=== PATIENT | female | born 1955 | race Caucasian/White ===

== ENCOUNTER → 2018-01-09 | Outpatient (CLI) | payer BC ==
[~2018-01-09] MED LIST: ACT35T PO; CALC-8 PO; CEFD300C3 PO; CHOL200078 PO; EST1.25T PO; FOLI1TAB24 PO; GABA-490 PO; HYDR-3816 PO; HYDR1CAP2 PO; MELO7.5T PO; MTX2.5T PO; ONDA-42 PO; PRED10TA22 PO; RISE150T; TOFA11TA PO
--- NOTE | 2018-01-09 18:50 | Diagnostic Imaging Report ---
INDICATION: Osteoporosis screening. FINDINGS: Bone mineral analysis of the lumbar spine and bilateral hips was performed. Bone mineral density for the lumbar spine L2-L4 is 1.055 with a T-score of -1.2. The bone mineral density in the left femoral neck is 0.866 with T-score of -1.2. Bone mineral density in the right femoral neck is 0.894 with T-score of -1.0. IMPRESSION: Findings consistent with osteopenia of the lumbar spine and bilateral femoral necks. Dictated by: Dictated on workstation # [id number]
== END ==
LOC: RAD 11:28
PROVIDERS: ATTEND Internal Medicine Rheumatology
DX: Z13.820 Encounter for screening for osteoporosis (principal); M85.80 Other specified disorders of bone density and structure, unspecified site
CPT/HCPCS: 77080

== ENCOUNTER → 2018-04-11 | Outpatient (CLI) | payer BC ==
[~2018-04-11] MED LIST changes: +RT-ALBUTEROL SULF 2.5 MG/3 ML PRE-MIX VIAL INH ONE
--- NOTE | 2018-04-11 13:53 | Diagnostic Imaging Report ---
PROCEDURE: CT chest without contrast. TECHNIQUE: Multiple contiguous axial images were obtained through the chest without the use of intravenous contrast. INDICATION: Dyspnea. Recent hospitalization for pneumonia. COMPARISON: 02/05/2018 FINDINGS: No suggestion of pathologically enlarged mediastinal and/or hilar lymph nodes on noncontrast imaging. The heart size is unremarkable. Thoracic aorta normal in contour. Gastroesophageal junction unremarkable. Lungs relatively clear of infiltrate on followup. There is a small, predominant solid nodule posterior right lower lobe currently measuring 6 mm (image 34 series 2). Previously measured at 78 mm, generally stable. The visualized portions of the upper abdomen are unremarkable. The visualized osseous structures demonstrate no acute findings. IMPRESSION: 1. Lung jaime appearing generally clear of infiltrate on followup. 2. Small right lower lobe pulmonary nodule does persist as well as generally stable in size from previous imaging, continued followup imaging is recommended as possibly neoplasm should not be excluded at this time. Dictated by: Dictated on workstation # [id number]
== END ==
LOC: RAD 10:13
PROVIDERS: ATTEND Nurse Practitioner Family
DX: J18.9 Pneumonia, unspecified organism (principal); R91.1 Solitary pulmonary nodule; M19.90 Unspecified osteoarthritis, unspecified site
CPT/HCPCS: 71250; 94060; 94726; 94729

== ENCOUNTER 2018-06-15 19:40 | Emergency (ER) | payer BC ==
[~2018-06-15] VITALS: Ht 170.2 cm; Wt 63.5 kg
[~2018-06-15 19:40] MED LIST changes: -RT-ALBUTEROL SULF 2.5 MG/3 ML PRE-MIX VIAL INH ONE
--- OUTSIDE RECORDS SUMMARY | 2018-06-15 19:46 | XMS REPORT | Clinical Summary ---
Author Author [facility] Organization [facility] Address Unknown Phone Unavailable Care Team Providers Care Surgical Nurse Practitioner Name Role Phone Anthony Warner MD PCP Allergies Active Allergy Reactions Severity Noted Date Comments Risedronate Nausea And Vomiting 05/05/2018 Etanercept Rash Medium 09/30/2017 Adalimumab Swelling 05/05/2018 Current Medications Prescription Sig. Disp. Refills Start End Date Status Date traZODone (DESYREL) 50 MG Take 50 mg by mouth Active tablet nightly. ranitidine (ZANTAC) 75 MG Take 75 mg by mouth 2 Active tablet (two) times a day. folic acid (FOLVITE) 1 MG Take 1 tablet (1 mg 90 tablet 3 06/10/20 Active tablet total) by mouth daily. 17 PREMARIN 1.25 mg tablet Take 1.25 mg by mouth 5 11/19/19 Active daily. 18 XELJANZ XR 11 mg Tb24 3 12/26/19 Active 18 HYDROcodone-acetaminophen 0 12/17/19 Active (NORCO) 7.5-325 mg per 18 tablet tiZANidine (ZANAFLEX) 2 Take 1 tablet (2 mg 30 tablet 1 12/31/19 Active MG tablet total) by mouth every 8 18 (eight) hours as needed. methylPREDNISolone Follow package directions 21 tablet 0 12/31/19 Active (MEDROL DOSEPACK) 4 mg 18 tablet methotrexate 2.5 MG TAKE 6 TABLETS BY MOUTH 78 tablet 0 01/14/20 Active tablet WEEKLY 18 VENTOLIN HFA 90 11 03/04/20 Active mcg/actuation HFA inhaler 18 predniSONE (DELTASONE) 5 Take 1 tablet (5 mg 10 tablet 1 05/05/20 Active MG tablet total) by mouth daily. 18 gabapentin (NEURONTIN) TAKE ONE CAPSULE BY MOUTH 270 capsule 0 Active 400 MG capsule THREE TIMES DAILY 18 Hospital, Clinic, or Ordered Dose Route Frequency Start End Date Status Other Facility Date Administered Medication methylPREDNISolone 80 mg IM Once 03/18/20 Active acetate (DEPO-MEDROL) 80 17 mg/mL injection 80 mgIndications: Shoulder pain, unspecified chronicity, unspecified laterality, Chronic pain of toes of both feet, Raised antibody titer Active Problems Problem Noted Date Encounter for therapeutic drug monitoring 12/30/2017 Osteopenia 12/30/2017 Seropositive rheumatoid arthritis of multiple sites (HCC) 06/10/2017 Pain in both hands 06/10/2017 Pain of left hip joint 06/10/2017 Shoulder pain 03/18/2017 Chronic pain of toes of both feet 03/18/2017 Raised antibody titer 03/18/2017 Stiffness of joint 03/18/2017 Overview: IMO Update Encounters Date Type Specialty Care Team Description 05/13/2018 Documentation Rheumatology Bhavana Torre MD 05/10/2018 Refill Rheumatology Bhavana Torre MD Other 05/06/2018 Documentation Rheumatology Bhavana Torre MD 05/05/2018 Office Visit Rheumatology Bhavana Torre MD Seropositive rheumatoid arthritis of multiple sites (HCC) (Primary Dx); Osteopenia, unspecified location; Pain in both hands; Encounter for therapeutic drug monitoring from Last 3 Months Social History Tobacco Use Types Packs/Day Years Used Date Never Smoker Smokeless Tobacco: Never Used Sex Assigned at Date Recorded Not on file Last Filed Vital Signs Vital Sign Reading Time Taken Blood Pressure 124/78 05/05/2018 11:30 AM [employer] Pulse 66 05/05/2018 11:30 AM [employer] Temperature 36.3 C (97.3 F) 05/05/2018 11:30 AM [employer] Respiratory Rate 16 12/30/2017 11:26 AM CDT Oxygen Saturation 98% 12/30/2017 11:26 AM CDT Inhaled Oxygen - - Concentration Weight 70.3 kg (155 lb) 05/05/2018 11:30 AM [employer] Height 170.2 cm (5' 7") 05/05/2018 11:30 AM [employer] Body Mass Index 24.28 05/05/2018 11:30 AM [employer] Plan of Treatment Date Type Specialty Care Team Description 09/01/2018 Office Visit Rheumatology Bhavana Torre MD [address] [place] [id number] [phone] Health Maintenance Due Date Last Done Comments Hepatitis C Screen 1955 Td # 1955 Osteoporosis Screening 1955 Cervical Cancer Screening 09/25/1976 via Pap Smear Colorectal Screening via 09/25/2005 Colonoscopy Mammogram Screening 09/25/2005 Zoster Vaccine# (1 of 2) 09/25/2005 Influenza Vaccine Completed 04/10/2018 Results Not on filefrom Last 3 Months
--- OUTSIDE RECORDS SUMMARY | 2018-06-15 19:46 | XMS REPORT | Encounter Summary ---
Author Author [facility] Organization [facility] Address Unknown Phone Unavailable Care Team Providers Care Director Diversity Name Role Phone Anthony Warner MD PCP Encounter Details Date Type Department Care Team Description 05/13/2018 Documentation [facility] Rheumatology Bhavana Torre MD [facility] [address] [place] [address] [facility] [address] [place] [address] [phone] Social History Tobacco Use Types Packs/Day Years Used Date Never Smoker Smokeless Tobacco: Never Used Sex Assigned at Date Recorded Not on file as of this encounter Plan of Treatment Date Type Specialty Care Team Description 09/01/2018 Office Visit Rheumatology Bhavana Torre MD [address] [place] [address] [phone] as of this encounter Visit Diagnoses Not on filein this encounter
--- OUTSIDE RECORDS SUMMARY | 2018-06-15 19:47 | XMS REPORT | Continuity of Care Document ---
Author Author [facility] Organization [facility] Address Unknown Phone Unavailable Allergies Active Description Code Type Severity Reaction Onset Reported/Identified Relationship to Patient Clinical Status Yes No Known Drug Allergies [id number] Drug Allergy Unknown N/A 08/09/2010 Yes adalimumab [id number] Drug Allergy Moderate SWOLLEN/REDNESS 02/05/2018 Yes etanercept [id number] Drug Allergy Moderate REDNESS/SWELLIN 02/05/2018 Medications There is no data. Problems Date Dx Coded Attending Type Code Diagnosis Diagnosed By 01/07/2011 Ot 558.9 NONINF GASTROENTERIT NEC 01/07/2011 Ot 787.91 DIARRHEA 12/27/2011 Ot 276.50 VOLUME DEPLETION, UNSPECIFIED 12/27/2011 Ot 288.60 LEUKOCYTOSIS , UNSPECIFIED 12/27/2011 Ot 558.9 NONINF GASTROENTERIT NEC 12/27/2011 Ot 724.2 LUMBAGO 12/27/2011 Ot 784.0 HEADACHE 12/31/2012 TOLU TEJEDA MD Ot 562.10 DIVERTICULOSIS COLON (W/O MENT OF HEMORR 12/31/2012 TOLU TEJEDA MD Ot 578.1 BLOOD IN STOOL 03/01/2016 Ot 722.52 LUMB/ LUMBOSAC DISC DEGEN 03/01/2016 Ot 558.9 NONINF GASTROENTERIT NEC 03/01/2016 TOLU TEJEDA MD Ot V72.84 EXAM PRE-OPERATIVE NOS 03/06/2016 SAPPHIRE PANDYA DO Ot S99.922A UNSPECIFIED INJURY OF LEFT FOOT, INITIAL 03/06/2016 SAPPHIRE PANDYA DO Ot W20.8XXA OTH CAUSE OF STRIKE BY THROWN, PROJECTED 03/06/2016 SAPPHIRE PANDYA DO Ot Y99.8 OTHER EXTERNAL CAUSE STATUS 03/14/2016 SAPPHIRE PANDYA DO Ot S99.922A UNSPECIFIED INJURY OF LEFT FOOT, INITIAL 03/14/2016 SAPPHIRE PANDYA DO Ot W20.8XXA OT CAUSE OF STRIKE BY THROWN, PROJECTED 03/14/2016 SAPPHIRE PANDYA DO Ot Y99.8 OTHER EXTERNAL CAUSE STATUS 12/25/2017 MICHELLE WATTS Ot Z12.31 ENCNTR SCREEN MAMMOGRAM FOR MALIGNANT NE 01/09/2018 MICHELLE WATTS Ot Z12.31 ENCNTR SCREEN MAMMOGRAM FOR MALIGNANT NE 01/15/2018 ADRIANA DAVIS, MACKENZIE Ot M85.80 OT DISRD OF BONE DENSITY AND STRUCTURE, 01/15/2018 ADRIANA DAVIS, MACKENZIE Ot Z13.820 ENCOUNTER FOR SCREENING FOR OSTEOPOROSIS 01/22/2018 MACKENZIE WRIGHT MD Ot M85.80 OT DISRD OF BONE DENSITY AND STRUCTURE, 01/22/2018 MACKENZIE WRIGHT MD Ot Z13.820 ENCOUNTER FOR SCREENING FOR OSTEOPOROSIS 02/12/2018 Ot I95.9 HYPOTENSION, UNSPECIFIED 02/12/2018 Ot J81.1 CHRONIC PULMONARY EDEMA 02/12/2018 Ot J84.9 INTERSTITIAL PULMONARY DISEASE, UNSPECIF 02/12/2018 Ot M06.9 RHEUMATOID ARTHRITIS, UNSPECIFIED 02/12/2018 Ot M25.559 PAIN IN UNSPECIFIED HIP 02/12/2018 Ot M54.9 DORSALGIA, UNSPECIFIED 02/12/2018 Ot N28.9 DISORDER OF KIDNEY AND URETER, UNSPECIFI 02/12/2018 Ot R07.89 OTHER CHEST PAIN 02/12/2018 Ot R11.2 NAUSEA WITH VOMITING, UNSPECIFIED 02/12/2018 Ot R19.7 DIARRHEA, UNSPECIFIED 02/12/2018 Ot R51 HEADACHE 02/12/2018 Ot R91.1 SOLITARY PULMONARY NODULE 02/19/2018 SAPPHIRE PANDYA DO Ot J18.9 PNEUMONIA, UNSPECIFIED ORGANISM 03/07/2018 SAPPHIRE PANDYA DO Ot J18.9 PNEUMONIA, UNSPECIFIED ORGANISM 04/14/2018 BEVERLY العلي APRN Ot J18.9 PNEUMONIA, UNSPECIFIED ORGANISM 04/14/2018 BEVERLY العلي APRN Ot M19.90 UNSPECIFIED OSTEOARTHRITIS, UNSPECIFIED 04/14/2018 BEVERLY العلي APRN Ot R91.1 SOLITARY PULMONARY NODULE Procedures Code Description Performed By Performed On [id number] DRAINAGE OF SPINAL CANAL, PERCUTANEOUS A 02/07/2018 [id number] DRAINAGE OF RIGHT MIDDLE LUNG LOBE, ENDO 02/09/2018 [id number] DRAINAGE OF LEFT UPPER LUNG LOBE, ENDO, 02/09/2018 Results Test Result Range Complete blood count (CBC) with automated white blood cell (WBC) differential - 02/05/18 10:10 Blood leukocytes automated count (number/volume) 8.5 10*3/uL 4.3-11.0 Blood erythrocytes automated count (number/volume) 4.57 10*6/uL 4.35-5.85 Venous blood hemoglobin measurement (mass/volume) 14.0 g/dL 11.5-16.0 Blood hematocrit (volume fraction) 41 % 35-52 Automated erythrocyte mean corpuscular volume 89 [foz_us] 80-99 Automated erythrocyte mean corpuscular hemoglobin (mass per erythrocyte) 31 pg 25-34 Automated erythrocyte mean corpuscular hemoglobin concentration measurement ( mass/volume) 34 g/dL 32-36 Automated erythrocyte distribution width ratio 13.9 % 10.0-14.5 Automated blood platelet count (count/volume) 278 10*3/uL 130-400 Automated blood platelet mean volume measurement 8.2 [foz_us] 7.4-10.4 Automated blood neutrophils/100 leukocytes 81 % 42-75 Automated blood lymphocytes/100 leukocytes 6 % 12-44 Blood monocytes/100 leukocytes 8 % 0-12 Automated blood eosinophils/100 leukocytes 5 % 0-10 Automated blood basophils/100 leukocytes 0 % 0-10 Blood neutrophils automated count (number/volume) 6.9 10*3 1.8-7.8 Blood lymphocytes automated count (number/volume) 0.5 10*3 1.0-4.0 Blood monocytes automated count (number/volume) 0.7 10*3 0.0-1.0 Automated eosinophil count 0.4 10*3/uL 0.0-0.3 Automated blood basophil count (count/volume) 0.0 10*3/uL 0.0-0.1 Blood lactic acid measurement (moles/volume) - 02/05/18 10:10 Blood lactic acid measurement (moles/volume) 1.24 mmol/L 0.50-2.00 Comprehensive metabolic panel - 02/05/18 10:10 Serum or plasma sodium measurement (moles/volume) 138 mmol/L 135-145 Serum or plasma potassium measurement (moles/volume) 4.0 mmol/L 3.6-5.0 Serum or plasma chloride measurement (moles/volume) 101 mmol/L 98-107 Carbon dioxide 27 mmol/L 21-32 Serum or plasma anion gap determination (moles/volume) 10 mmol/L 5-14 Serum or plasma urea nitrogen measurement (mass/volume) 16 mg/dL 7-18 Serum or plasma creatinine measurement (mass/volume) 1.08 mg/dL 0.60-1.30 Serum or plasma urea nitrogen/creatinine mass ratio 15 NRG Serum or plasma creatinine measurement with calculation of estimated glomerular filtration rate 51 NRG Serum or plasma glucose measurement (mass/volume) 108 mg/dL 70-105 Serum or plasma calcium measurement (mass/volume) 10.0 mg/dL 8.5-10.1 Serum or plasma total bilirubin measurement (mass/volume) 0.8 mg/dL 0.1-1.0 Serum or plasma alkaline phosphatase measurement (enzymatic activity/volume) 69 U/L 40-136 Serum or plasma aspartate aminotransferase measurement (enzymatic activity/ volume) 22 U/L 5-34 Serum or plasma alanine aminotransferase measurement (enzymatic activity/volume ) 17 U/L 0-55 Serum or plasma protein measurement (mass/volume) 7.3 g/dL 6.4-8.2 Serum or plasma albumin measurement (mass/volume) 4.2 g/dL 3.2-4.5 CALCIUM CORRECTED 9.8 mg/dL 8.5-10.1 Blood manual differential performed detection - 02/05/18 10:10 Blood monocytes/100 leukocytes 5 % NR Manual blood segmented neutrophils/100 leukocytes 67 % NRG Blood band neutrophils/100 leukocytes 13 % NRG Manual blood lymphocytes/100 leukocytes 11 % NRG Manual eosinophils/100 leukocytes in nose 3 % NRG Manual blood basophils/100 leukocytes 0 % NRG Blood lymphocytes variant/100 leukocytes 1 % NRG Blood erythrocyte morphology finding identification NORMAL NRG Blood platelet clump detection by light microscopy SLIGHT NRG PT panel in platelet poor plasma by coagulation assay - 02/05/18 10:10 Prothrombin time (PT) in platelet poor plasma by coagulation assay 13.5 s 12.2-14.7 INR in platelet poor plasma or blood by coagulation assay 1.0 0.8-1.4 Activated partial thromboplastin time (aPTT) in platelet poor plasma bycoagulation assay - 02/05/18 10:10 Activated partial thromboplastin time (aPTT) in platelet poor plasma bycoagulation assay 32 s 24-35 Fibrin D-dimer FEU measurement in platelet poor plasma (mass/volume) - 10:10 Fibrin D-dimer FEU measurement in platelet poor plasma (mass/volume) 1.79 ug/mL 0.00-0.49 Serum or plasma lithium measurement (moles/volume) - 02/05/18 10:10 BNP level < pg/mL <100.0 Bacterial blood culture - 02/05/18 10:10 Bacterial blood culture NG NRG Bacterial blood culture - 02/05/18 10:33 Bacterial blood culture NG NRG Complete blood count (CBC) with automated white blood cell (WBC) differential - 02/06/18 05:24 Blood leukocytes automated count (number/volume) 4.9 10*3/uL 4.3-11.0 Blood erythrocytes automated count (number/volume) 3.61 10*6/uL 4.35-5.85 Venous blood hemoglobin measurement (mass/volume) 10.6 g/dL 11.5-16.0 Blood hematocrit (volume fraction) 33 % 35-52 Automated erythrocyte mean corpuscular volume 90 [foz_us] 80-99 Automated erythrocyte mean corpuscular hemoglobin (mass per erythrocyte) 29 pg 25-34 Automated erythrocyte mean corpuscular hemoglobin concentration measurement ( mass/volume) 33 g/dL 32-36 Automated erythrocyte distribution width ratio 14.1 % 10.0-14.5 Automated blood platelet count (count/volume) 267 10*3/uL 130-400 Automated blood platelet mean volume measurement 8.4 [foz_us] 7.4-10.4 Automated blood neutrophils/100 leukocytes 64 % 42-75 Automated blood lymphocytes/100 leukocytes 17 % 12-44 Blood monocytes/100 leukocytes 13 % 0-12 Automated blood eosinophils/100 leukocytes 7 % 0-10 Automated blood basophils/100 leukocytes 0 % 0-10 Blood neutrophils automated count (number/volume) 3.1 10*3 1.8-7.8 Blood lymphocytes automated count (number/volume) 0.8 10*3 1.0-4.0 Blood monocytes automated count (number/volume) 0.6 10*3 0.0-1.0 Automated eosinophil count 0.3 10*3/uL 0.0-0.3 Automated blood basophil count (count/volume) 0.0 10*3/uL 0.0-0.1 Comprehensive metabolic panel - 02/06/18 05:24 Serum or plasma sodium measurement (moles/volume) 138 mmol/L 135-145 Serum or plasma potassium measurement (moles/volume) 3.8 mmol/L 3.6-5.0 Serum or plasma chloride measurement (moles/volume) 109 mmol/L 98-107 Carbon dioxide 21 mmol/L 21-32 Serum or plasma anion gap determination (moles/volume) 8 mmol/L 5-14 Serum or plasma urea nitrogen measurement (mass/volume) 9 mg/dL 7-18 Serum or plasma creatinine measurement (mass/volume) 0.84 mg/dL 0.60-1.30 Serum or plasma urea nitrogen/creatinine mass ratio 11 NRG Serum or plasma creatinine measurement with calculation of estimated glomerular filtration rate > NRG Serum or plasma glucose measurement (mass/volume) 104 mg/dL 70-105 Serum or plasma calcium measurement (mass/volume) 8.4 mg/dL 8.5-10.1 Serum or plasma total bilirubin measurement (mass/volume) 0.5 mg/dL 0.1-1.0 Serum or plasma alkaline phosphatase measurement (enzymatic activity/volume) 53 U/L 40-136 Serum or plasma aspartate aminotransferase measurement (enzymatic activity/ volume) 22 U/L 5-34 Serum or plasma alanine aminotransferase measurement (enzymatic activity/volume ) 16 U/L 0-55 Serum or plasma protein measurement (mass/volume) 5.0 g/dL 6.4-8.2 Serum or plasma albumin measurement (mass/volume) 3.1 g/dL 3.2-4.5 CALCIUM CORRECTED 9.1 mg/dL 8.5-10.1 THYROID STIMULATING HORMONE - 02/06/18 05:24 THYROID STIMULATING HORMONE 1.07 u[iU]/mL 0.35-4.94 Serum or plasma troponin i.cardiac measurement (mass/volume) - 02/06/18 12:25 Serum or plasma troponin i.cardiac measurement (mass/volume) < ng/ mL <0.30 Complete urinalysis with reflex to culture - 02/06/18 13:40 Urine color determination YELLOW NRG Urine clarity determination CLEAR NRG Urine pH measurement by test strip 5 5-9 Specific gravity of urine by test strip 1.015 1.016- 1.022 Urine protein assay by test strip, semi-quantitative NEGATIVE NEGATIVE Urine glucose detection by automated test strip NEGATIVE NEGATIVE Erythrocytes detection in urine sediment by light microscopy NEGATIVE NEGATIVE Urine ketones detection by automated test strip NEGATIVE NEGATIVE Urine nitrite detection by test strip NEGATIVE NEGATIVE Urine total bilirubin detection by test strip NEGATIVE NEGATIVE Urine urobilinogen measurement by automated test strip (mass/volume) NORMAL NORMAL Urine leukocyte esterase detection by dipstick NEGATIVE NEGATIVE Automated urine sediment erythrocyte count by microscopy (number/high power field) RARE NRG Automated urine sediment leukocyte count by microscopy (number/high power field ) NONE NRG Bacteria detection in urine sediment by light microscopy NEGATIVE NRG Squamous epithelial cells detection in urine sediment by light microscopy 0-2 NRG Crystals detection in urine sediment by light microscopy PRESENT NRG Casts detection in urine sediment by light microscopy NONE NRG Mucus detection in urine sediment by light microscopy NEGATIVE NRG Complete urinalysis with reflex to culture NO NRG Amorphous sediment detection in urine sediment by light microscopy FEW DILLON URATES NRG Complete blood count (CBC) with automated white blood cell (WBC) differential - 02/06/18 15:25 Blood leukocytes automated count (number/volume) 5.9 10*3/uL 4.3-11.0 Blood erythrocytes automated count (number/volume) 3.81 10*6/uL 4.35-5.85 Venous blood hemoglobin measurement (mass/volume) 11.4 g/dL 11.5-16.0 Blood hematocrit (volume fraction) 34 % 35-52 Automated erythrocyte mean corpuscular volume 90 [foz_us] 80-99 Automated erythrocyte mean corpuscular hemoglobin (mass per erythrocyte) 30 pg 25-34 Automated erythrocyte mean corpuscular hemoglobin concentration measurement ( mass/volume) 33 g/dL 32-36 Automated erythrocyte distribution width ratio 13.9 % 10.0-14.5 Automated blood platelet count (count/volume) 268 10*3/uL 130-400 Automated blood platelet mean volume measurement 8.0 [foz_us] 7.4-10.4 Automated blood neutrophils/100 leukocytes 80 % 42-75 Automated blood lymphocytes/100 leukocytes 8 % 12-44 Blood monocytes/100 leukocytes 8 % 0-12 Automated blood eosinophils/100 leukocytes 4 % 0-10 Automated blood basophils/100 leukocytes 0 % 0-10 Blood neutrophils automated count (number/volume) 4.7 10*3 1.8-7.8 Blood lymphocytes automated count (number/volume) 0.5 10*3 1.0-4.0 Blood monocytes automated count (number/volume) 0.5 10*3 0.0-1.0 Automated eosinophil count 0.2 10*3/uL 0.0-0.3 Automated blood basophil count (count/volume) 0.0 10*3/uL 0.0-0.1 Blood lactic acid measurement (moles/volume) - 02/06/18 15:25 Blood lactic acid measurement (moles/volume) 1.79 mmol/L 0.50-2.00 Comprehensive metabolic panel - 02/06/18 15:25 Serum or plasma sodium measurement (moles/volume) 139 mmol/L 135-145 Serum or plasma potassium measurement (moles/volume) 3.9 mmol/L 3.6-5.0 Serum or plasma chloride measurement (moles/volume) 110 mmol/L 98-107 Carbon dioxide 19 mmol/L 21-32 Serum or plasma anion gap determination (moles/volume) 10 mmol/L 5-14 Serum or plasma urea nitrogen measurement (mass/volume) 8 mg/dL 7-18 Serum or plasma creatinine measurement (mass/volume) 0.93 mg/dL 0.60-1.30 Serum or plasma urea nitrogen/creatinine mass ratio 9 NRG Serum or plasma creatinine measurement with calculation of estimated glomerular filtration rate > NRG Serum or plasma glucose measurement (mass/volume) 99 mg/dL 70-105 Serum or plasma calcium measurement (mass/volume) 8.7 mg/dL 8.5-10.1 Serum or plasma total bilirubin measurement (mass/volume) 0.6 mg/dL 0.1-1.0 Serum or plasma alkaline phosphatase measurement (enzymatic activity/volume) 65 U/L 40-136 Serum or plasma aspartate aminotransferase measurement (enzymatic activity/ volume) 27 U/L 5-34 Serum or plasma alanine aminotransferase measurement (enzymatic activity/volume ) 21 U/L 0-55 Serum or plasma protein measurement (mass/volume) 5.7 g/dL 6.4-8.2 Serum or plasma albumin measurement (mass/volume) 3.4 g/dL 3.2-4.5 CALCIUM CORRECTED 9.2 mg/dL 8.5-10.1 Serum or plasma phosphate measurement (mass/volume) - 02/06/18 15:25 Serum or plasma phosphate measurement (mass/volume) 2.2 mg/dL 2.3-4.7 Magnesium - 02/06/18 15:25 Magnesium 1.7 mg/dL 1.8-2.4 Serum or plasma troponin i.cardiac measurement (mass/volume) - 02/06/18 18:00 Serum or plasma troponin i.cardiac measurement (mass/volume) < ng/ mL <0.30 Serum or plasma troponin i.cardiac measurement (mass/volume) - 02/06/18 23:59 Serum or plasma troponin i.cardiac measurement (mass/volume) < ng/ mL <0.30 Complete blood count (CBC) with automated white blood cell (WBC) differential - 02/07/18 03:12 Blood leukocytes automated count (number/volume) 5.1 10*3/uL 4.3-11.0 Blood erythrocytes automated count (number/volume) 3.53 10*6/uL 4.35-5.85 Venous blood hemoglobin measurement (mass/volume) 10.6 g/dL 11.5-16.0 Blood hematocrit (volume fraction) 32 % 35-52 Automated erythrocyte mean corpuscular volume 90 [foz_us] 80-99 Automated erythrocyte mean corpuscular hemoglobin (mass per erythrocyte) 30 pg 25-34 Automated erythrocyte mean corpuscular hemoglobin concentration measurement ( mass/volume) 33 g/dL 32-36 Automated erythrocyte distribution width ratio 13.9 % 10.0-14.5 Automated blood platelet count (count/volume) 241 10*3/uL 130-400 Automated blood platelet mean volume measurement 8.3 [foz_us] 7.4-10.4 Automated blood neutrophils/100 leukocytes 69 % 42-75 Automated blood lymphocytes/100 leukocytes 14 % 12-44 Blood monocytes/100 leukocytes 12 % 0-12 Automated blood eosinophils/100 leukocytes 5 % 0-10 Automated blood basophils/100 leukocytes 0 % 0-10 Blood neutrophils automated count (number/volume) 3.5 10*3 1.8-7.8 Blood lymphocytes automated count (number/volume) 0.7 10*3 1.0-4.0 Blood monocytes automated count (number/volume) 0.6 10*3 0.0-1.0 Automated eosinophil count 0.2 10*3/uL 0.0-0.3 Automated blood basophil count (count/volume) 0.0 10*3/uL 0.0-0.1 Blood lactic acid measurement (moles/volume) - 02/07/18 03:12 Blood lactic acid measurement (moles/volume) 0.93 mmol/L 0.50-2.00 Whole blood basic metabolic panel - 02/07/18 03:12 Serum or plasma sodium measurement (moles/volume) 143 mmol/L 135-145 Serum or plasma potassium measurement (moles/volume) 3.5 mmol/L 3.6-5.0 Serum or plasma chloride measurement (moles/volume) 114 mmol/L 98-107 Carbon dioxide 21 mmol/L 21-32 Serum or plasma anion gap determination (moles/volume) 8 mmol/L 5-14 Serum or plasma urea nitrogen measurement (mass/volume) 5 mg/dL 7-18 Serum or plasma creatinine measurement (mass/volume) 0.87 mg/dL 0.60-1.30 Serum or plasma urea nitrogen/creatinine mass ratio 6 NRG Serum or plasma creatinine measurement with calculation of estimated glomerular filtration rate > NRG Serum or plasma glucose measurement (mass/volume) 100 mg/dL 70-105 Serum or plasma calcium measurement (mass/volume) 8.6 mg/dL 8.5-10.1 Serum or plasma phosphate measurement (mass/volume) - 02/07/18 03:12 Serum or plasma phosphate measurement (mass/volume) 3.2 mg/dL 2.3-4.7 Magnesium - 02/07/18 03:12 Magnesium 1.7 mg/dL 1.8-2.4 Serum or plasma lithium measurement (moles/volume) - 02/07/18 09:36 BNP level 619.3 pg/mL <100.0 Cerebrospinal fluid cell count - 02/07/18 14:06 Cerebrospinal fluid appearance description CLEAR NRG Cerebrospinal fluid color identification COLORLESS NRG Cerebrospinal fluid leukocytes count (number/volume) 0 % 0-5 Cerebrospinal fluid erythrocytes count (number/volume) 0 % 0-0 Manual cerebrospinal fluid lymphocytes/100 leukocytes TNP NRG Manual cerebrospinal fluid mononuclear cells/100 leukocytes TNP NRG Manual cerebrospinal fluid polymorphonuclear cells/100 leukocytes TNP NRG Cerebrospinal fluid cell count on specimen from last tube collected 4 NRG Cerebrospinal fluid glucose measurement (mass/volume) - 02/07/18 14:06 Cerebrospinal fluid glucose measurement (mass/volume) 69 mg/dL 50-80 Cerebrospinal fluid protein measurement (mass/volume) - 02/07/18 14:06 Cerebrospinal fluid protein measurement (mass/volume) 24 mg/dL 15-40 Gram stain microscopy - 02/07/18 14:06 GRAM STAIN RESULT GRAM STAIN READ AT -P NRG Bacterial cerebrospinal fluid culture - 02/07/18 14:06 QUANTITY OF GROWTH . NRG Bacterial cerebrospinal fluid culture RML NRG Fungus culture - 02/07/18 14:06 QUANTITY OF GROWTH . NRG Fungus culture RML NRG C FUNGUS SPUTUM FLUID TISSUE - 02/07/18 14:06 C FUNGUS SPUTUM FLUID TISSUE NG NRG Vancomycin trough - 02/07/18 21:24 Vancomycin trough 17.3 ug/mL 10.0-20.0 Complete blood count (CBC) with automated white blood cell (WBC) differential - 02/08/18 03:23 Blood leukocytes automated count (number/volume) 5.7 10*3/uL 4.3-11.0 Blood erythrocytes automated count (number/volume) 3.94 10*6/uL 4.35-5.85 Venous blood hemoglobin measurement (mass/volume) 11.6 g/dL 11.5-16.0 Blood hematocrit (volume fraction) 35 % 35-52 Automated erythrocyte mean corpuscular volume 90 [foz_us] 80-99 Automated erythrocyte mean corpuscular hemoglobin (mass per erythrocyte) 29 pg 25-34 Automated erythrocyte mean corpuscular hemoglobin concentration measurement ( mass/volume) 33 g/dL 32-36 Automated erythrocyte distribution width ratio 14.0 % 10.0-14.5 Automated blood platelet count (count/volume) 262 10*3/uL 130-400 Automated blood platelet mean volume measurement 7.9 [foz_us] 7.4-10.4 Automated blood neutrophils/100 leukocytes 73 % 42-75 Automated blood lymphocytes/100 leukocytes 11 % 12-44 Blood monocytes/100 leukocytes 9 % 0-12 Automated blood eosinophils/100 leukocytes 7 % 0-10 Automated blood basophils/100 leukocytes 0 % 0-10 Blood neutrophils automated count (number/volume) 4.1 10*3 1.8-7.8 Blood lymphocytes automated count (number/volume) 0.6 10*3 1.0-4.0 Blood monocytes automated count (number/volume) 0.5 10*3 0.0-1.0 Automated eosinophil count 0.4 10*3/uL 0.0-0.3 Automated blood basophil count (count/volume) 0.0 10*3/uL 0.0-0.1 Whole blood basic metabolic panel - 02/08/18 03:23 Serum or plasma sodium measurement (moles/volume) 142 mmol/L 135-145 Serum or plasma potassium measurement (moles/volume) 3.5 mmol/L 3.6-5.0 Serum or plasma chloride measurement (moles/volume) 106 mmol/L 98-107 Carbon dioxide 24 mmol/L 21-32 Serum or plasma anion gap determination (moles/volume) 12 mmol/L 5-14 Serum or plasma urea nitrogen measurement (mass/volume) 6 mg/dL 7-18 Serum or plasma creatinine measurement (mass/volume) 1.16 mg/dL 0.60-1.30 Serum or plasma urea nitrogen/creatinine mass ratio 5 NRG Serum or plasma creatinine measurement with calculation of estimated glomerular filtration rate 47 NRG Serum or plasma glucose measurement (mass/volume) 91 mg/dL 70-105 Serum or plasma calcium measurement (mass/volume) 8.6 mg/dL 8.5-10.1 Serum or plasma phosphate measurement (mass/volume) - 02/08/18 03:23 Serum or plasma phosphate measurement (mass/volume) 4.0 mg/dL 2.3-4.7 Magnesium - 02/08/18 03:23 Magnesium 2.0 mg/dL 1.8-2.4 Erythrocyte sedimentation rate by westergren method - 02/08/18 03:23 Erythrocyte sedimentation rate by westergren method 30 mm 0-30 C FUNGUS SPUTUM FLUID TISSUE - 02/09/18 08:00 C FUNGUS SPUTUM FLUID TISSUE NG NRG Mycobacterium species detection by organism specific culture - 02/09/18 08:00 QUANTITY OF GROWTH . NRG Mycobacterium species detection by organism specific culture SEE COMMEN NRG C FUNGUS SPUTUM FLUID TISSUE - 02/09/18 08:01 C FUNGUS SPUTUM FLUID TISSUE NG NRG C FUNGUS SPUTUM FLUID TISSUE - 02/09/18 08:02 C FUNGUS SPUTUM FLUID TISSUE NG NRG Mycobacterium species detection by organism specific culture - 02/09/18 08:02 QUANTITY OF GROWTH . NRG Mycobacterium species detection by organism specific culture SEE COMMEN NRG Encounters ACCT No. Visit Date/Time Discharge Status Pt. Type Provider Facility Loc./Unit Complaint [id number] 04/14/2018 11:59:00 04/14/2018 23:59:59 CLS Preadmit BEVERLY العلي APRN [facility] RAD LUNG NODULE [id number] 04/11/2018 10:13:00 04/11/2018 23:59:59 CLS Outpatient BEVERLY العلي APRN [facility] RAD DYSPNEA,ARTHRITIS [id number] 02/19/2018 09:19:00 02/19/2018 23:59:59 CLS Preadmit MACKENZIE WRIGHT MD [facility] RAD M85.80 OSTEOPENIA [id number] 02/18/2018 09:42:00 02/18/2018 23:59:59 CLS Outpatient SAPPHIRE PANDYA DO [facility] RAD PNEUMONIA [id number] 01/09/2018 11:28:00 01/09/2018 23:59:59 CLS Outpatient MACKENZIE WRIGHT MD [facility] RAD OSTEOPENIA,UNSPECIFIED LOCATION [id number] 12/24/2017 08:35:00 12/24/2017 23:59:59 CLS Outpatient MICHELLE WATTS [facility] RAD SCREENING [id number] 03/01/2016 12:52:00 03/01/2016 23:59:59 CLS Outpatient SAPPHIRE PANDYA DO [facility] RAD PAIN L METATARSAL REGION [id number] 12/31/2012 09:32:00 12/31/2012 13:25:00 DIS Outpatient TOLU TEJEDA MD [facility] SDC BLOOD IN STOOL [id number] 12/24/2012 09:37:00 12/24/2012 23:59:59 CLS Outpatient TOLU TEJEDA MD [facility] PREOP BLOOD IN STOOL [id number] 02/06/2018 08:21:00 Document Registration [id number] 12/25/2011 05:25:00 Document Registration [id number] 08/16/2011 14:56:00 Document Registration [id number] 01/07/2011 11:18:00 Document Registration [id number] 12/20/2010 11:15:00 Document Registration
--- OUTSIDE RECORDS SUMMARY | 2018-06-15 19:47 | XMS REPORT | Encounter Summary ---
Author Author [facility] Organization [facility] Address Unknown Phone Unavailable Care Team Providers Care Java Application Developer Name Role Phone Anthony Warner MD PCP Reason for Visit * Reason Comments Other Encounter Details Date Type Department Care Team Description 05/10/2018 Refill [facility] Rheumatology Bhavana Torre MD Other Specialists [address] [place] [address] [address] [address] [place] [address] [phone] Social History Tobacco Use Types Packs/Day Years Used Date Never Smoker Smokeless Tobacco: Never Used Sex Assigned at Date Recorded Not on file as of this encounter Plan of Treatment Date Type Specialty Care Team Description 09/01/2018 Office Visit Rheumatology Bhavana Torre MD [address] [place] [address] [phone] as of this encounter Visit Diagnoses Not on filein this encounter
--- OUTSIDE RECORDS SUMMARY | 2018-06-15 19:47 | XMS REPORT | Encounter Summary ---
Author Author [facility] Organization [facility] Address Unknown Phone Unavailable Care Team Providers Care Building Mechanic Name Role Phone Anthony Warner MD PCP Encounter Details Date Type Department Care Team Description 05/06/2018 Documentation [facility] Rheumatology Bhavana Torre MD Specialists [address] [place] [address] [facility] [address] [place] [address] [phone] Social History Tobacco Use Types Packs/Day Years Used Date Never Smoker Smokeless Tobacco: Never Used Sex Assigned at Date Recorded Not on file as of this encounter Plan of Treatment Date Type Specialty Care Team Description 09/01/2018 Office Visit Rheumatology Bhavana Torre MD [address] [place] [address] [phone] as of this encounter Visit Diagnoses Not on filein this encounter
--- OUTSIDE RECORDS SUMMARY | 2018-06-15 19:47 | XMS REPORT | Encounter Summary ---
Author Author [facility] Organization [facility] Address Unknown Phone Unavailable Care Team Providers Care School Librarian Name Role Phone Anthony Warner MD PCP Reason for Visit * Reason Comments Follow-up Encounter Details Date Type Department Care Team Description 05/05/2018 Office Visit [facility] Rheumatology Bhavana Torre MD Seropositive rheumatoid Specialists [address] arthritis of multiple [address] [place] [address] sites ([facility]) (Primary Dx); [address] [place], [place] [address] location; [phone] Pain in both hands; Encounter for therapeutic drug monitoring Social History Tobacco Use Types Packs/Day Years Used Date Never Smoker Smokeless Tobacco: Never Used Sex Assigned at Date Recorded Not on file as of this encounter Last Filed Vital Signs Vital Sign Reading Time Taken Blood Pressure 124/78 05/05/2018 11:30 AM TUBULAR SPLITTING MACHINE TENDER Pulse 66 05/05/2018 11:30 AM TUBULAR SPLITTING MACHINE TENDER Temperature 36.3 C (97.3 F) 05/05/2018 11:30 AM TUBULAR SPLITTING MACHINE TENDER Respiratory Rate - - Oxygen Saturation - - Inhaled Oxygen - - Concentration Weight 70.3 kg (155 lb) 05/05/2018 11:30 AM TUBULAR SPLITTING MACHINE TENDER Height 170.2 cm (5' 7") 05/05/2018 11:30 AM TUBULAR SPLITTING MACHINE TENDER Body Mass Index 24.28 05/05/2018 11:30 AM TUBULAR SPLITTING MACHINE TENDER in this encounter Progress Notes * Bhavana Torre MD - 05/05/2018 11:40 AM TUBULAR SPLITTING MACHINE TENDER Formatting of this note may be different from the original. Patient ID: Selena Flores is a 62 y.o. female. Subjective: Patient presents with Follow-up Objective: ROS recent pneumonia in January 2018. Her pneumonia is better, she was found to have nodules and states that she will need them looked at. Uses inhalers daily. She is now followed by pulmonary as well History of Present Illness Pt states that she got really sick for several days, she got Pneumonia and was told to get off all her medications for three weeks. This was in January 2018, she states that she then still took a long time to get better, she went back on the Xelzanj and is off the Methotrexate at this time. She states that after her recent pneumonia, when she resumed the Xeljanz, she made an appointment to see Dr. Derrek Jaime and has an upcoming evaluation with them in August 2018 Allergies Allergies Allergen Reactions Enbrel [Etanercept] Rash Actonel [Risedronate] Nausea And Vomiting Humira [Adalimumab] Swelling Medications Outpatient Prescriptions Marked as Taking for the 05/05/18 encounter (Office Visit) with Bhavana Torre MD Medication Sig Dispense Refill folic acid (FOLVITE) 1 MG tablet Take 1 tablet (1 mg total) by mouth daily. 90 tablet 3 gabapentin (NEURONTIN) 400 MG capsule TAKE ONE CAPSULE BY MOUTH THREE TIMES DAILY 270 capsule 0 HYDROcodone-acetaminophen (NORCO) 7.5-325 mg per tablet 0 methotrexate 2.5 MG tablet TAKE 6 TABLETS BY MOUTH WEEKLY 78 tablet 0 methylPREDNISolone (MEDROL DOSEPACK) 4 mg tablet Follow package directions 21 tablet 0 PREMARIN 1.25 mg tablet Take 1.25 mg by mouth daily. 5 ranitidine (ZANTAC) 75 MG tablet Take 75 mg by mouth 2 (two) times a day. tiZANidine (ZANAFLEX) 2 MG tablet Take 1 tablet (2 mg total) by mouth every 8 (eight) hours as needed. 30 tablet 1 traZODone (DESYREL) 50 MG tablet Take 50 mg by mouth nightly. VENTOLIN HFA 90 mcg/actuation HFA inhaler 11 XELJANZ XR 11 mg Tb24 3 Current Facility-Administered Medications for the 05/05/18 encounter (Office Visit) with Bhavana Torre MD Medication Dose Route Frequency Provider Last Rate Last Dose methylPREDNISolone acetate (DEPO-MEDROL) 80 mg/mL injection 80 mg 80 mg Intramuscular Once Bhavana Torre MD Physical Exam General appearance - alert, well appearing, and in no distress Eyes - pupils equal and reactive, extraocular eye movements intact Ears - bilateral TM's and external ear canals normal Nose - normal and patent, no erythema, discharge or polyps Mouth - mucous membranes moist and no oral sores. No pharyngeal erythema seen Neck - supple, no significant adenopathy Chest - clear to auscultation, no wheezes, rales or rhonchi, symmetric air entry Heart - normal rate, regular rhythm, normal S1, S2, no murmurs, rubs, clicks or gallops Abdomen - soft, nontender, nondistended, no masses or organomegaly Back exam - full range of motion, no tenderness, palpable spasm or pain on motion Musculoskeletal - no joint tenderness, deformity or swelling, bilateral knee and hip tenderness. Hands swollen and tender. Skin - normal coloration and turgor, no rashes, no suspicious skin lesions noted Vitals BP 124/78 | Pulse 66 | Temp 36.3 C (97.3 F) (Tympanic) | Ht 1.702 m (5' 7 ") | Wt 70.3 kg (155 lb) | BMI 24.28 kg/m Assessment Encounter Diagnoses Name Primary? Seropositive rheumatoid arthritis of multiple sites (HCC) Yes Osteopenia, unspecified location Pain in both hands Encounter for therapeutic drug monitoring Plan Orders Placed This Encounter Quantiferon TB Gold Plus Standing Status: Future Number of Occurrences: 1 Standing Expiration Date: 05/06/2019 CBC and Diff (manual diff if necessary) Standing Status: Future Number of Occurrences: 1 Standing Expiration Date: 05/06/2019 Comprehensive Metabolic Panel Standing Status: Future Number of Occurrences: 1 Standing Expiration Date: 05/06/2019 C-Reactive Protein Standing Status: Future Number of Occurrences: 1 Standing Expiration Date: 05/06/2019 Erythrocyte Sedimentation Rate Standing Status: Future Number of Occurrences: 1 Standing Expiration Date: 05/06/2019 VENTOLIN HFA 90 mcg/actuation HFA inhaler Refill: 11 DISCONTD: predniSONE (DELTASONE) 5 MG tablet Sig: Take 1 tablet (5 mg total) by mouth daily. Dispense: 10 tablet Refill: 1 predniSONE (DELTASONE) 5 MG tablet Sig: Take 1 tablet (5 mg total) by mouth daily. Dispense: 10 tablet Refill: 1 1. Past history of low-grade positive CCP test of 23 in March 2015. She has had extensive problems with polyarthralgias and myalgias. In the past she has had a mildly elevated C-reactive protein as well.All her numbers were normal on recent repeat. 2. Bone density scan performed in 2018 showed osteopenia of the spine and bilateral hips. We discussed adequate calcium and vitamin D intake at this time. 3. Incomplete response to nonsteroidal medications-she has been on meloxicam with no benefit and cannot afford Celebrex. 4. Long-standing history of low back pain her back hurts after doing activities at the end of the day. She is taking gabapentin 400 mg 3 times a day. Script for muscle relaxant provided in the past as well. 5. Disease modifying drug monitoring-she is reporting headaches with the use of methotrexate. Most recently she had pneumonia an stopped taking the methotrexate. I have encouraged her to get the pneumococcal vaccine. 6. Elevated C-reactive protein-we will perform blood work today. She is off methotrexate. We will also obtain a TB test at this time . She was taking methotrexate 10 tab once a week, this dose was decreased when she got started on biologic medications. She continues to state that she is not getting enough benefit with any of these medications. She wonders if Remicade infusions would be an option to treat. She might be needing to look at alternative insurance options the beginning of next year. So for now we have encouraged her to to stay on Xeljanz and can decide on alternative medications at her follow-up appointment. I will give her a short course of prednisone for 10 days with 1 refill to help in the meantime. We have given her periodic steroid injections to help. She has since tried the biologic Humira, developed side effects due to the same and it was then switched and well but has reacted to that as well with injection site reactions. We started biologic Xelzanj in September 2017.Her x-rays of her hands as well as her left hip showed changes consistent with erosive arthritis. follow up appt in 3months. in this encounter Plan of Treatment Date Type Specialty Care Team Description 09/01/2018 Office Visit Rheumatology Bhavana Torre MD [address] [place] [address] [phone] Name Priority Associated Diagnoses Order Schedule Quantiferon TB Gold Plus Routine Seropositive rheumatoid 1 Occurrences starting arthritis of multiple 05/05/2018 until sites ([facility]) 05/06/2019 Pain in both hands CBC and Diff (manual diff if necessary) Routine Seropositive rheumatoid 1 Occurrences starting arthritis of multiple 05/05/2018 until sites ([facility]) 05/06/2019 Pain in both hands Comprehensive Metabolic Panel Routine Seropositive rheumatoid 1 Occurrences starting arthritis of multiple 05/05/2018 until sites ([facility]) 05/06/2019 Pain in both hands C-Reactive Protein Routine Seropositive rheumatoid 1 Occurrences starting arthritis of multiple 05/05/2018 until sites ([facility]) 05/06/2019 Pain in both hands Erythrocyte Sedimentation Rate Routine Seropositive rheumatoid 1 Occurrences starting arthritis of multiple 05/05/2018 until sites ([facility]) 05/06/2019 Pain in both hands as of this encounter Visit Diagnoses Diagnosis Seropositive rheumatoid arthritis of multiple sites ([facility]) - Primary Osteopenia, unspecified location Pain in both hands Encounter for therapeutic drug monitoring
--- NOTE | 2018-06-15 20:26 | ED Cough/URI ---
General Chief Complaint: Cough/Cold/Flu Symptoms Stated Complaint: PNEUMONIA Nursing Triage Note: AMB TO TRIAGE WITH FEVER, COUGH, SORE THROAT ET STARTING X2 DAYS AGO. STATES SHE TOOK TYLENOL 1000MG AT 1500 Source: patient, spouse Exam Limitations: no limitations History of Present Illness Date Seen by Provider: Jun 15, 2018 Time Seen by Provider: 20:01 Initial Comments PT ARRIVES VIA POV FROM HOME STATES SHE BEGAN GETTING SICK 2 DAYS AGO C/O FEVER UP TO 102.7 C/O BODY ACHES C/O SORE THROAT C/O BILATERAL EAR PAIN C/O CLEAR NASAL DRAINAGE C/O PRODUCTIVE COUGH WITH CLEAR TO WHITE SPUTUM NO CHEST PAIN OR SHORTNESS OF BREATH OR WHEEZING C/O BACK PAIN AND GENERALIZED PAIN PT TOOK TYLENOL X 2 AT 1500 TODAY, OTHERWISE HAS NOT TAKEN ANYTHING FOR SYMPTOMS PT HAS R.A. AND TAKES HYDROCODONE, BUT HAS NOT HAD ANY SINCE YESTERDAY. PT IS ON XELJANZ FOR R.A. PT HAD PNEUMONIA IN JANUARY BUT OTHERWISE DOES NOT HAVE A HISTORY OF RESPIRATORY PROBLEMS HAS BEEN OFF METHOTREXATE SINCE JANUARY PCP: DR. PANDYA Allergies and Home Medications Allergies Coded Allergies: adalimumab (Verified Allergy, Intermediate, SWOLLEN/REDNESS, 02/05/18) etanercept (Verified Allergy, Intermediate, REDNESS/SWELLING, 02/05/18) Home Medications Benzonatate 100 Mg Capsule, 1-2 TAB PO TID Prescribed by: KELLIE SONG on 06/15/182128 Calcium Carbonate/Vitamin D3 1 Each Tab.chew, 2 TAB.CHEW PO DAILY, (Reported) Cefdinir 300 Mg Capsule, 300 MG PO BID Prescribed by: LUIS GUZMAN on 02/12/18 1327 Cefdinir 300 Mg Capsule, 300 MG PO BID Prescribed by: KELLIE SONG on 06/15/182128 Cholecalciferol (Vitamin D3) 2,000 Unit Tab.chew, 4,000 UNIT PO DAILY, (Reported ) TAKES 2 (2,000 UNIT) TABLETS Estrogens Conjugated 1.25 Mg Tab, 1.25 MG PO DAILY, (Reported) Folic Acid 1 Mg Tablet, 1 MG PO SuTuWeThFrSa, (Reported) Folic Acid 1 Mg Tablet, 2 MG PO Mo, (Reported) TAKES 2 (1MG) TABLETS ON MONDAYS; DAY AFTER METHOTREXATE Gabapentin 400 Mg Capsule, 400 MG PO TID, (Reported) Guaifenesin/Dextromethorphan 1 Each Tbmp.12hr, 1 EACH PO BID Prescribed by: KELLIE SONG on 06/15/182128 Hydrocodone/Acetaminophen 1 Each Tablet, 1 TAB PO TID PRN for PAIN-MODERATE, ( Reported) Loratadine/Pseudoephedrine 1 Each Tab.er.12h, 1 EACH PO BID Prescribed by: KELLIE SONG on 06/15/182128 Methylprednisolone 4 Mg Tab.ds.pk, 4 MG PO UD Prescribed by: KELLIE SONG on 06/15/182128 Prednisone 10 Mg Tab.ds.pk, 10 MG PO DAILY Take 6 tabs(60mg)daily,decrease by 1 tab(10MG)daily. Prescribed by: LUIS GUZMAN on 02/12/18 132 Triamcinolone Acetonide 10.8 Ml [place], 2 SPRAY NSEACH BID Prescribed by: KELLIE SONG on 06/15/182129 Patient Home Medication List Home Medication List Reviewed: Yes Review of Systems Review of Systems Constitutional: see HPI, chills, fever, weakness EENTM: nose congestion, throat pain Respiratory: see HPI, cough; No short of breath Cardiovascular: no symptoms reported; No chest pain Gastrointestinal: no symptoms reported Genitourinary: no symptoms reported Musculoskeletal: see HPI, back pain, joint pain, muscle pain Skin: no symptoms reported; No rash Psychiatric/Neurological: No Symptoms Reported; Denies Headache Hematologic/Lymphatic: No Symptoms Reported Immunological/Allergic: no symptoms reported Past Bonhkqc-Xctnvg-Jtqruw Hx Patient Social History Alcohol Use: Occasionally Uses Alcohol Beverage of Choice: Wine Recreational Drug Use: No Smoking Status: Former Smoker (IN COLLEGE) Recent Foreign Travel: No Contact w/Someone Who Travel: No Recent Infectious Disease Expo: No Recent Hopitalizations: No Seasonal Allergies Seasonal Allergies: No Past Medical History Surgeries: Yes (HYST/BSO; BILATERAL SHOULDER/LABRUM REPAIRS; ) Adenoidectomy, Hysterectomy, Oophorectomy, Orthopedic, Tonsillectomy Respiratory: Yes (PNEUMONIA CHILD X 1, THEN AGAIN IN JANUARY 2018) Pneumonia Currently Using CPAP: No Currently Using BIPAP: No Cardiac: No Neurological: No 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 0.0oz. 63.713040px; 23.3 BMI Method:Stated General Appearance: WD/WN, no apparent distress, other (MOANING CONSTANTLY, AMBULATES IN ON OWN WITH SOME ASSIST. GENERALIZED WEAKNESS. LOOKS MILDLY ILL) HEENT: PERRL/EOMI, other (PROFUSE CLEAR RHINORRHEA) Neck: normal inspection Respiratory: normal breath sounds, no respiratory distress, no accessory muscle use Cardiovascular: normal peripheral pulses, regular rate, rhythm, no edema, no JVD, no murmur Gastrointestinal: normal bowel sounds, non tender, soft Extremities: no pedal edema, normal capillary refill Neurologic/Psychiatric: bereavement counselor II-XII nml as tested, no motor/sensory deficits, alert, oriented x 3 Skin: normal color, warm/dry; No rash Focused Exam Lactate Level 06/15/18 20:19: Lactic Acid Level 0.99 Lactic Acid Level Laboratory Tests Test 06/15/18 20:19 Lactic Acid Level 0.99 MMOL/L (0.50-2.00) Progress/Results/Core Measures Suspected Sepsis Recent Fever Within 48 Hours: Yes Infection Criteria Present: None New/Unexplained Altered Menta: No Sepsis Screen: No Definite Risk SIRS Temperature:102.0 Pulse: 85 Respiratory Rate: 16 Laboratory Tests 06/15/18 20:19: White Blood Count 7.3 Blood Pressure 140 /85 Mean: 103 06/15/18 20:19: Lactic Acid Level 0.99 Laboratory Tests 06/15/18 20:19: Creatinine 1.14, INR Comment 1.0, Platelet Count 266, Total Bilirubin 0.6 Results/Orders Lab Results Laboratory Tests Test 06/15/18 20:19 06/15/18 21:10 Range/Units White Blood Count 7.3 4.3-11.0 10^3/uL Red Blood Count 4.41 4.35-5.85 10^6/uL Hemoglobin 12.7 11.5-16.0 G/DL Hematocrit 38 35-52 % Mean Corpuscular Volume 87 80-99 FL Mean Corpuscular Hemoglobin 29 25-34 PG Mean Corpuscular Hemoglobin Concent 33 32-36 G/DL Red Cell Distribution Width 14.1 10.0-14.5 % Platelet Count 266 130-400 10^3/uL Mean Platelet Volume 8.4 7.4-10.4 FL Neutrophils (%) (Auto) 78 H 42-75 % Lymphocytes (%) (Auto) 10 L 12-44 % Monocytes (%) (Auto) 11 0-12 % Eosinophils (%) (Auto) 0 0-10 % Basophils (%) (Auto) 0 0-10 % Neutrophils # (Auto) 5.7 1.8-7.8 X 10^3 Lymphocytes # (Auto) 0.7 L 1.0-4.0 X 10^3 Monocytes # (Auto) 0.8 0.0-1.0 X 10^3 Eosinophils # (Auto) 0.0 0.0-0.3 10^3/uL Basophils # (Auto) 0.0 0.0-0.1 10^3/uL Prothrombin Time 13.4 12.2-14.7 SEC INR Comment 1.0 0.8-1.4 Activated Partial Thromboplast Time 33 24-35 SEC Sodium Level 139 135-145 MMOL/L Potassium Level 3.9 3.6-5.0 MMOL/L Chloride Level 103 98-107 MMOL/L Carbon Dioxide Level 23 21-32 MMOL/L Anion Gap 13 5-14 MMOL/L Blood Urea Nitrogen 8 7-18 MG/DL Creatinine 1.14 0.60-1.30 MG/DL Estimat Glomerular Filtration Rate 48 BUN/Creatinine Ratio 7 Glucose Level 99 70-105 MG/DL Lactic Acid Level 0.99 0.50-2.00 MMOL/L Calcium Level 9.8 8.5-10.1 MG/DL Corrected Calcium 9.5 8.5-10.1 MG/DL Magnesium Level 2.2 1.8-2.4 MG/DL Total Bilirubin 0.6 0.1-1.0 MG/DL Aspartate Amino Transf (AST/SGOT) 15 5-34 U/L Alanine Aminotransferase (ALT/SGPT) 12 0-55 U/L Alkaline Phosphatase 37 L 40-136 U/L Total Protein 7.3 6.4-8.2 GM/DL Albumin 4.4 3.2-4.5 GM/DL Group A Streptococcus Screen NEGATIVE NEGATIVE Urine Color YELLOW Urine Clarity CLEAR Urine pH 8 5-9 Urine Specific [place] 1.010 L 1.016-1.022 Urine Protein NEGATIVE NEGATIVE Urine Glucose (UA) NEGATIVE NEGATIVE Urine Ketones 1+ H NEGATIVE Urine Nitrite NEGATIVE NEGATIVE Urine Bilirubin NEGATIVE NEGATIVE Urine Urobilinogen NORMAL NORMAL MG/DL Urine Leukocyte Esterase NEGATIVE NEGATIVE Urine RBC (Auto) 2+ H NEGATIVE Urine RBC 5-10 H /HPF Urine WBC NONE /HPF Urine Squamous Epithelial Cells 2-5 /HPF Urine Crystals NONE /LPF Urine Bacteria NEGATIVE /HPF Urine Casts NONE /LPF Urine Mucus SMALL H /LPF Urine Culture Indicated NO Micro Results Microbiology 06/15/18 Influenza Types A,B Antigen (COURTNEY) - Final, Complete My Orders Orders - KELLIE SONG DO Cbc With Automated Diff (06/15/18 20:05) Comprehensive Metabolic Panel (06/15/18 20:05) Blood Culture (06/15/18 20:05) Sputum Culture (06/15/18 20:05) Protime With Inr (06/15/18 20:05) Partial Thromboplastin Time (06/15/18 20:05) Chest 1 View, Ap/Pa Only (06/15/18 20:05) Saline Lock/Iv-Start (06/15/18 20:05) Saline Lock/Iv-Start (06/15/18 20:05) Vital Signs Adult Sepsis Patie Q15M (06/15/18 20:05) O2 (06/15/18 20:05) Remove Rings In Anticipation O (06/15/18 20:05) Lactic Acid Analyzer (06/15/18 20:05) Influenza A And B Antigens (06/15/18 20:05) Magnesium (06/15/18 20:05) Rapid Strep A Screen (06/15/18 20:05) Monitor-Rhythm Ecg Trace Only (06/15/18 20:05) Acetaminophen Tablet (Tylenol Tablet) (06/15/18 20:30) Ibuprofen Tablet (Motrin Tablet) (06/15/18 20:30) Urinalysis (06/15/18 20:55) Urine Culture (06/15/18 20:55) Methylprednisolone Sod Succ (Solu-Medrol (12/16/18 21:15) Ceftriaxone For Iv Use (Rocephin For I (06/15/18 21:15) Medications Given in ED Current Medications Medications Dose Ordered Sig/Sergio Route Start Time Stop Time Status Last Admin Dose Admin Acetaminophen 1,000 mg ONCE ONCE PO 06/15/18 20:30 06/15/18 20:31 DC 06/15/18 20:25 1,000 MG Ceftriaxone Sodium 1000 mg/ Sodium Chloride 50 ml @ 100 mls/hr ONCE ONCE IV 06/15/18 21:15 06/15/18 21:44 DC 06/15/18 21:16 100 MLS/HR Ibuprofen 800 mg ONCE ONCE PO 06/15/18 20:30 06/15/18 20:31 DC 06/15/18 20:25 800 MG Methylprednisolone Sodium Succinate 125 mg ONCE ONCE IVP 06/15/18 21:15 06/15/18 21:16 DC 06/15/18 21:16 125 MG Vital Signs/I&O 06/15/18 06/15/18 06/15/18 06/15/18 19:56 20:19 20:19 20:25 Temp 102.0 102.0 Pulse 85 Resp 16 B/P (MAP) 140/85 (103) Pulse Ox 93 95 O2 Delivery Room Air Room Air Room Air 06/15/18 06/15/18 20:25 21:51 Temp 102.0 100.0 Pulse 79 Resp 19 B/P (MAP) 122/70 (87) Pulse Ox 95 O2 Delivery Room Air 06/16/18 00:00 Intake Total 50 ml Balance 50 ml Capillary Refill : Less Than 3 Seconds Blood Pressure Mean: 103 Progress Note : Progress Note SYMPTOMS IMPROVED AT DISMISSAL NO LONGER MOANING AND RESTING QUIETLY NO SIGNIFICANT COUGH DURING ER STAY PT FEELS COMFORTABLE GOING HOME PT STATES SHE DOES HAVE A NEBULIZER WITH ALBUTEROL AT HOME FROM WHEN SHE HAD PNEUMONIA, BUT HAS NOT USED IT SINCE THEN. Diagnostic Imaging Comments CXR--NO ACUTE PROCESS, PER RADIOLOGIST REPORT @ [id number] Reviewed: Reviewed by Me Departure Impression Primary Impression: Upper respiratory infection Additional Impressions: Influenza-like symptoms RHEUMATOID ARHRITIS ON IMMUNOSUPPRESSIVE THERAPY WITH XELJANZ Disposition: HOME, SELF-CARE Condition: Improved Departure-Patient Inst. Referrals: SAPPHIRE PANDYA DO (PCP/Family) Primary Care Physician Patient Instructions: Bacterial Upper Respiratory Infection, Adult (DC), Viral Upper Respiratory Infection, Adult (DC) Add. Discharge Instructions: LOTS OF CLEAR LIQUIDS--WATER, BROTH, JELLO, GATORADE BLAND DIET TYLENOL 1 GRAM / MOTRIN 800 MG 4 TIMES A DAY NEEDED FOR FEVER OVER 101 TAKE YOUR HYDROCODONE NEEDED FOR PAIN USE YOUR HOME NEBULIZER NEEDED FOR WHEEZING FOLLOW UP WITH DR. PANDYA IN 3-4 DAYS IF NO BETTER, RETURN TO ER IF WORSE All discharge instructions reviewed with patient and/or family. Voiced understanding. Scripts Triamcinolone Acetonide (Nasacort) 10.8 Ml [place] 2 SPRAY NSEACH BID, #1 SPRAY Prov: KELLIE SONG DO 06/15/18 Methylprednisolone (Medrol) 4 Mg Tab.ds.pk 4 MG PO UD, #1 PKG Prov: KELLIE SONG DO 06/15/18 Loratadine/Pseudoephedrine (Claritin-D 12 Hour Tablet) 1 Each Tab.er.12h 1 EACH PO BID for Congestion, #30 TAB Prov: KELLIE SONG DO 06/15/18 Guaifenesin/Dextromethorphan (Mucinex Dm ER 1,200-60 mg Tab) 1 Each Tbmp.12hr 1 EACH PO BID for 10 Days, #20 EA Prov: KELLIE SONG DO 06/15/18 Benzonatate (TESSALON PERLES) 100 Mg Capsule 1-2 TAB PO TID for Cough, #30 CAP Prov: KELLIE SONG DO 06/15/18 Cefdinir (Cefdinir) 300 Mg Capsule 300 MG PO BID for FOR INFECTION, #20 CAP Prov: KELLIE SONG DO 06/15/18 KELLIE SONG DO Jun 15, 2018 20:26
[2018-06-15] MEDS ORDERED: IBUPROFEN 800 MG (MOTRIN) TAB PO ONE (20:30)
[2018-06-15] MEDS ORDERED: ACETAMINOPHEN 500 MG TAB (TYLENOL) PO ONE (20:30)
[2018-06-15 20:33] LABS: BASOPHILS % (AUTO) 0 % (0-10); EOSINOPHILS % (AUTO) 0 % (0-10); HEMATOCRIT 38 % (35-52); HEMOGLOBIN 12.7 G/DL (11.5-16.0); LYMPHOCYTES # (AUTO) 0.7 X 10^3 (1.0-4.0); LYMPHOCYTES % (AUTO) 10 % (12-44); MEAN CORPUSCULAR HEMOGLOBIN 29 PG (25-34); MEAN CORPUSCULAR HGB CONC 33 G/DL (32-36); MEAN CORPUSCULAR VOLUME 87 FL (80-99); MEAN PLATELET VOLUME 8.4 FL (7.4-10.4); MONOCYTES # (AUTO) 0.8 X 10^3 (0.0-1.0); MONOCYTES % (AUTO) 11 % (0-12); NEUTROPHILS # (AUTO) 5.7 X 10^3 (1.8-7.8); NEUTROPHILS % (AUTO) 78 % (42-75); PLATELET COUNT 266 10^3/uL (130-400); RED BLOOD COUNT 4.41 10^6/uL (4.35-5.85); RED CELL DISTRIBUTION WIDTH 14.1 % (10.0-14.5); WHITE BLOOD COUNT 7.3 10^3/uL (4.3-11.0)
[2018-06-15 20:48] LABS: PROTHROMBIN TIME PATIENT 13.4 SEC (12.2-14.7)
[2018-06-15 20:56] LABS: ALBUMIN 4.4 GM/DL (3.2-4.5); BILIRUBIN,TOTAL 0.6 MG/DL (0.1-1.0); CALCIUM 9.8 MG/DL (8.5-10.1); CREATININE SERUM 1.14 MG/DL (0.60-1.30); MAGNESIUM 2.2 MG/DL (1.8-2.4); POTASSIUM 3.9 MMOL/L (3.6-5.0); TOTAL PROTEIN 7.3 GM/DL (6.4-8.2)
--- NOTE | 2018-06-15 21:04 | Diagnostic Imaging Report ---
INDICATION: Cough COMPARISON: 02/18/18 FINDINGS: Single view of the chest demonstrates stable cardiac enlargement. The lungs are clear. There is no pneumothorax. The osseous structures normal. IMPRESSION: No acute cardiopulmonary findings. Dictated by: Dictated on workstation # [id number]
[2018-06-15] MEDS ORDERED: methylPREDNISolone 125 MG (Solu-MEDROL) VIAL IVP ONE (21:15)
[2018-06-15] MEDS ORDERED: cefTRIAXone FOR IV USE 1,000 MG in NS (IVPB) 50 ML IV ONE (21:15)
[2018-06-15 21:26] LABS: BILIRUBIN,URINE NEGATIVE (NEGATIVE); CLARITY,URINE CLEAR; COLOR,URINE YELLOW; GLUCOSE, URINE (UA) NEGATIVE (NEGATIVE); KETONES,URINE 1+ (NEGATIVE); LEUKOCYTE ESTERASE ,URINE NEGATIVE (NEGATIVE); NITRITE,URINE NEGATIVE (NEGATIVE); PH,URINE 8 (5-9); PROTEIN,URINE NEGATIVE (NEGATIVE); UROBILINOGEN,URINE NORMAL (NORMAL)
[2018-06-15] MEDS ORDERED: LORA1TAB59 PO (21:29)
[2018-06-15] MEDS ORDERED: CEFD300C3 PO (21:29)
[2018-06-15] MEDS ORDERED: BENZ100C18 PO (21:29)
[2018-06-15] MEDS ORDERED: GUAI1TBM19 PO (21:29)
[2018-06-15] MEDS ORDERED: METH4TAB PO (21:29)
[2018-06-15] MEDS ORDERED: TRIA10.8 NSEACH (21:30)
[2018-06-15 21:35] LABS: BACTERIA,URINE NEGATIVE /HPF
[2018-06-15 21:51] VITALS: BP 122/70
== END 2018-06-15 21:51 | disposition home or self-care (01) ==
LOC: EDUNIT# 19:40 → ER 19:42
DX: J06.9 Acute upper respiratory infection, unspecified (principal); J10.1 Influenza due to other identified influenza virus with other respiratory manifestations; M06.9 Rheumatoid arthritis, unspecified; Z88.8 Allergy status to other drugs, medicaments and biological substances; Z79.52 Long term (current) use of systemic steroids; Z87.891 Personal history of nicotine dependence; Z90.89 Acquired absence of other organs; Z79.899 Other long term (current) drug therapy; Z90.710 Acquired absence of both cervix and uterus; Z98.890 Other specified postprocedural states; Z87.01 Personal history of pneumonia (recurrent)
CPT/HCPCS: 36415; 71045; 80053; 81000; 83605; 83735; 85025; 85610; 85730; 87040; 87070; 87088; 87205; 87430; 87804; 93041

== ENCOUNTER → 2018-06-18 | Outpatient (CLI) | payer BC ==
[~2018-06-18] MED LIST changes: +BENZ100C18 PO; +GUAI1TBM19 PO; +LORA1TAB59 PO; +METH4TAB PO; +TRIA10.8 NSEACH
[2018-06-18 16:19] LABS: BASOPHILS % (AUTO) 0 % (0-10); EOSINOPHILS % (AUTO) 0 % (0-10); HEMATOCRIT 40 % (35-52); HEMOGLOBIN 12.9 G/DL (11.5-16.0); LYMPHOCYTES # (AUTO) 0.4 X 10^3 (1.0-4.0); LYMPHOCYTES % (AUTO) 6 % (12-44); MEAN CORPUSCULAR HEMOGLOBIN 29 PG (25-34); MEAN CORPUSCULAR HGB CONC 33 G/DL (32-36); MEAN CORPUSCULAR VOLUME 88 FL (80-99); MEAN PLATELET VOLUME 8.7 FL (7.4-10.4); MONOCYTES # (AUTO) 0.8 X 10^3 (0.0-1.0); MONOCYTES % (AUTO) 13 % (0-12); NEUTROPHILS # (AUTO) 4.9 X 10^3 (1.8-7.8); NEUTROPHILS % (AUTO) 81 % (42-75); PLATELET COUNT 226 10^3/uL (130-400); RED CELL DISTRIBUTION WIDTH 14.1 % (10.0-14.5); WHITE BLOOD COUNT 6.1 10^3/uL (4.3-11.0)
--- NOTE | 2018-06-18 16:19 | Diagnostic Imaging Report ---
INDICATION: Cough and fever. TECHNIQUE: PA and lateral views of the chest are obtained. COMPARISON: Comparison is made to study of 06/15/2018. FINDINGS: Heart size and pulmonary vascularity are within normal limits, and the lungs are clear, bilaterally. IMPRESSION: Unremarkable chest. Dictated by: Dictated on workstation # [id number]
[2018-06-18 16:42] LABS: BAND NEUTROPHILS 9 %; BASOPHILS % (MANUAL) 0 %; EOSINOPHILS % (MANUAL) 0 %; LYMPHOCYTES % (MANUAL) 10 %; MONOCYTES % (MANUAL) 13 %; NEUTROPHILS % (MANUAL) 68 %; RBC MORPH NORMAL
== END ==
LOC: RAD 15:52
PROVIDERS: ATTEND Family Medicine
DX: J98.8 Other specified respiratory disorders (principal); R50.9 Fever, unspecified; R05 Cough
CPT/HCPCS: 36415; 71046; 85007; 85027

== ENCOUNTER → 2018-06-25 | Outpatient (CLI) | payer BC ==
[~2018-06-25] MED LIST changes: +ALBU18HF2 INH; +CODE118S4 PO; +LEVA1.2516 NEB; +LORA1TAB38 PO; +MULT-633 PO; +PRD10T PO; +RANI150T46 PO; +TRAZ-189 PO; +TRIA10.8 NS
[2018-06-25 11:20] LABS: BASOPHILS % (AUTO) 0 % (0-10); EOSINOPHILS # (AUTO) 0.1 10^3/uL (0.0-0.3); EOSINOPHILS % (AUTO) 1 % (0-10); HEMATOCRIT 42 % (35-52); HEMOGLOBIN 13.8 G/DL (11.5-16.0); LYMPHOCYTES % (AUTO) 15 % (12-44); MEAN CORPUSCULAR HEMOGLOBIN 28 PG (25-34); MEAN CORPUSCULAR HGB CONC 33 G/DL (32-36); MEAN CORPUSCULAR VOLUME 86 FL (80-99); MEAN PLATELET VOLUME 7.8 FL (7.4-10.4); MONOCYTES # (AUTO) 0.7 X 10^3 (0.0-1.0); MONOCYTES % (AUTO) 11 % (0-12); NEUTROPHILS # (AUTO) 4.7 X 10^3 (1.8-7.8); NEUTROPHILS % (AUTO) 72 % (42-75); PLATELET COUNT 336 10^3/uL (130-400); RED BLOOD COUNT 4.86 10^6/uL (4.35-5.85); RED CELL DISTRIBUTION WIDTH 13.8 % (10.0-14.5); WHITE BLOOD COUNT 6.5 10^3/uL (4.3-11.0)
--- NOTE | 2018-06-25 11:30 | Diagnostic Imaging Report ---
INDICATION: Coughing and congestion. TIME OF EXAM: 11:46 AM COMPARISON: Correlation is made with prior study from 06/18/2018. FINDINGS: The lungs do show some hyperinflation suggestive of COPD. No infiltrates are seen. No effusion or pneumothorax is identified. The heart size is stable. IMPRESSION: COPD. No acute abnormality is detected. Dictated by: Dictated on workstation # [id number]
[2018-06-25 11:37] LABS: ALBUMIN 4.2 GM/DL (3.2-4.5); BILIRUBIN,TOTAL 0.5 MG/DL (0.1-1.0); CALCIUM 9.6 MG/DL (8.5-10.1); CREATININE SERUM 1.14 MG/DL (0.60-1.30); POTASSIUM 4.8 MMOL/L (3.6-5.0); TOTAL PROTEIN 7.2 GM/DL (6.4-8.2)
== END ==
LOC: RAD 11:06
PROVIDERS: ATTEND Family Medicine
DX: J44.9 Chronic obstructive pulmonary disease, unspecified (principal)
CPT/HCPCS: 36415; 71046; 80053; 85025

== ENCOUNTER 2018-06-26 09:03 | Observation (INO) | payer BC ==
[~2018-06-26] VITALS: Ht 170.2 cm; Wt 63.5 kg
[~2018-06-26 09:03] MED LIST changes: -ALBU18HF2 INH; -CODE118S4 PO; -LEVA1.2516 NEB; -LORA1TAB38 PO; -MULT-633 PO; -PRD10T PO; -RANI150T46 PO; -TRAZ-189 PO; -TRIA10.8 NS
[2018-06-26 10:33] VITALS: BP 131/62
[2018-06-26] MEDS ORDERED: NS IV 1000 ML 1,000 ML ONE (10:37)
[2018-06-26] MEDS ORDERED: methylPREDNISolone 125 MG (Solu-MEDROL) VIAL IVP ONE (11:00)
[2018-06-26] MEDS ORDERED: guaiFENesin/CODEINE (ROBITUSSIN AC) 10ML UDC PO PRN (11:00)
--- NOTE | 2018-06-26 11:02 | Pulmonary Consultation ---
History of Present Illness History of Present Illness Date of Consultation 06/26/18 10:57 Date of Admission Allergies and Home Medications Allergies Coded Allergies: adalimumab (Verified Allergy, Intermediate, SWOLLEN/REDNESS, 02/05/18) etanercept (Verified Allergy, Intermediate, REDNESS/SWELLING, 02/05/18) Home Medications Benzonatate 100 Mg Capsule, 1-2 TAB PO TID Prescribed by: KELLIE SONG on 06/15/182128 Calcium Carbonate/Vitamin D3 1 Each Tab.chew, 2 TAB.CHEW PO DAILY, (Reported) Cefdinir 300 Mg Capsule, 300 MG PO BID Prescribed by: LUIS GUZMAN on 02/12/181326 Cefdinir 300 Mg Capsule, 300 MG PO BID Prescribed by: KELLIE SONG on 06/15/182128 Cholecalciferol (Vitamin D3) 2,000 Unit Tab.chew, 4,000 UNIT PO DAILY, (Reported ) TAKES 2 (2,000 UNIT) TABLETS Estrogens Conjugated 1.25 Mg Tab, 1.25 MG PO DAILY, (Reported) Folic Acid 1 Mg Tablet, 1 MG PO SuTuWeThFrSa, (Reported) Folic Acid 1 Mg Tablet, 2 MG PO Mo, (Reported) TAKES 2 (1MG) TABLETS ON MONDAYS; DAY AFTER METHOTREXATE Gabapentin 400 Mg Capsule, 400 MG PO TID, (Reported) Guaifenesin/Dextromethorphan 1 Each Tbmp.12hr, 1 EACH PO BID Prescribed by: KELLIE SONG on 06/15/182128 Hydrocodone/Acetaminophen 1 Each Tablet, 1 TAB PO TID PRN for PAIN-MODERATE, ( Reported) Loratadine/Pseudoephedrine 1 Each Tab.er.12h, 1 EACH PO BID Prescribed by: KELLIE SONG on 06/15/182128 Methylprednisolone 4 Mg Tab.ds.pk, 4 MG PO UD Prescribed by: KELLIE SONG on 06/15/182128 Prednisone 10 Mg Tab.ds.pk, 10 MG PO DAILY Take 6 tabs(60mg)daily,decrease by 1 tab(10MG)daily. Prescribed by: LUIS GUZMAN on 02/12/181326 Triamcinolone Acetonide 10.8 Ml [place], 2 SPRAY NSEACH BID Prescribed by: KELLIE SONG on 06/15/182129 Past Labxaxc-Fwopqo-Yzcerg Hx Patient Social History Alcohol Beverage of Choice: Wine Recent Foreign Travel: No Contact w/Someone Who Travel: No Recent Hopitalizations: No Seasonal Allergies Seasonal Allergies: No Past Medical History Surgeries: Yes (HYST/BSO; BILATERAL SHOULDER/LABRUM REPAIRS; ) Adenoidectomy, Hysterectomy, Oophorectomy, Orthopedic, Tonsillectomy Respiratory: Yes (PNEUMONIA CHILD X 1, THEN AGAIN IN JANUARY 2018) Pneumonia Currently Using CPAP: No Currently Using BIPAP: No Cardiac: No Neurological: No Reproductive Disorders: Yes 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 0.0oz. 63.174084ad; 23.3 BMI Method:Stated Exam Exam Vital Signs Date Time Temp Pulse Resp B/P (MAP) Pulse Ox O2 Delivery O2 Flow Rate FiO2 06/26/18 10:33 98.7 80 24 131/62 (85) 95 Room Air Height & Weight Height: 5'7.00" Weight: 140lbs. 0.0oz. 63.305270db; 23.3 BMI Method:Stated Assessment/Plan Assessment/Plan Asthma AE/ Acute bronchiolitis r/o pneumonia - failed out patient tx -Solumedrol 125mg IV X 1 then 40Q 6 -SVNs Q 4 -labs and CXR pending ......................................................................... JAIME TANG DO Jun 26, 2018 11:02
[2018-06-26] MEDS: NS IV 1000 ML 1,000 ML IV SCH ×2 (11:28→17:54)
[2018-06-26 11:36] LABS: BASOPHILS % (AUTO) 0 % (0-10); EOSINOPHILS % (AUTO) 0 % (0-10); HEMATOCRIT 39 % (35-52); HEMOGLOBIN 13.1 G/DL (11.5-16.0); LYMPHOCYTES # (AUTO) 0.6 X 10^3 (1.0-4.0); LYMPHOCYTES % (AUTO) 8 % (12-44); MEAN CORPUSCULAR HEMOGLOBIN 29 PG (25-34); MEAN CORPUSCULAR HGB CONC 34 G/DL (32-36); MEAN CORPUSCULAR VOLUME 86 FL (80-99); MEAN PLATELET VOLUME 8.2 FL (7.4-10.4); MONOCYTES # (AUTO) 0.6 X 10^3 (0.0-1.0); MONOCYTES % (AUTO) 8 % (0-12); NEUTROPHILS # (AUTO) 6.8 X 10^3 (1.8-7.8); NEUTROPHILS % (AUTO) 85 % (42-75); PLATELET COUNT 318 10^3/uL (130-400); RED BLOOD COUNT 4.52 10^6/uL (4.35-5.85); RED CELL DISTRIBUTION WIDTH 13.5 % (10.0-14.5); WHITE BLOOD COUNT 8.1 10^3/uL (4.3-11.0)
--- NOTE | 2018-06-26 11:47 | NUR ---
VLADIMIR JUDD admitted to room 425-1, with an admitting diagnosis of upper respitory infection, on 06/26/[address] Warner office (direct admit), accompanied by .VLADIMIR JUDD introduced to surroundings, call light, bed controls, phone, TV, temperature control, lights, meal times, smoking policy, visitor policy, side rail policy, bathrooms and showers. Patient Rights given to patient in the handbook. VLADIMIR JUDD verbalizes understanding that [facility] is not responsible for the loss or damage to any personal effects or valuables that are kept in the patients posession during their hospitalization. The following Patient Care Plans and discharge were discussed with the patient. VLADIMIR JUDD verbalizes understanding of Interdisciplinary Patient Education.
[2018-06-26 11:59] LABS: BILIRUBIN,TOTAL 0.4 MG/DL (0.1-1.0); CALCIUM 9.5 MG/DL (8.5-10.1); CREATININE SERUM 1.08 MG/DL (0.60-1.30); PHOSPHORUS 3.5 MG/DL (2.3-4.7); POTASSIUM 4.2 MMOL/L (3.6-5.0)
[2018-06-26 12:13] LABS: BAND NEUTROPHILS 2 %; BASOPHILS % (MANUAL) 0 %; EOSINOPHILS % (MANUAL) 0 %; LYMPHOCYTES % (MANUAL) 4 %; MONOCYTES % (MANUAL) 5 %; NEUTROPHILS % (MANUAL) 89 %; RBC MORPH NORMAL
[2018-06-26] MEDS: methylPREDNISolone 40 MG/ML (Solu-MEDROL) VIAL IV SCH ×2 (12:46→17:54)
--- NOTE | 2018-06-26 12:57 | Diagnostic Imaging Report ---
INDICATION: Shortness of breath. TIME OF EXAM: 12:49 p.m. Correlation is made with prior study from one day earlier. FINDINGS: The heart size is normal. The pulmonary vascularity is unremarkable. The lungs are clear. No infiltrate, effusion or pneumothorax is detected. IMPRESSION: No acute cardiopulmonary process is detected. Dictated by: Dictated on workstation # [id number]
[2018-06-26] MEDS: SALINE NASAL SPRAY (OCEAN) 45 ML BTL SCH ×3 (13:13→17:49)
--- NOTE | 2018-06-26 13:13 | NUR ---
patient using own home meds
[2018-06-26] MEDS ORDERED: PRD10T PO (13:33)
[2018-06-26] MEDS ORDERED: LORA1TAB38 PO (13:33)
[2018-06-26] MEDS ORDERED: CODE118S4 PO (13:33)
[2018-06-26] MEDS ORDERED: TRIA10.8 NS (13:33)
[2018-06-26] MEDS ORDERED: TOFA11TA PO (13:37)
[2018-06-26] MEDS ORDERED: RANI150T46 PO (13:37)
[2018-06-26] MEDS ORDERED: TRAZ-189 PO (13:37)
[2018-06-26] MEDS ORDERED: MULT-633 PO (13:37)
[2018-06-26] MEDS ORDERED: LEVA1.2516 NEB (13:39)
[2018-06-26] MEDS ORDERED: ALBU18HF2 INH (13:39)
[2018-06-26] MEDS: RT-ALBUTEROL SULF 2.5 MG/3 ML PRE-MIX VIAL INH SCH ×4 (15:23→21:40)
[2018-06-26 16:00] VITALS: BP 108/56
[2018-06-26] MEDS ORDERED: PATIENT MAY USE OWN MEDS, ALL MC SCH (16:00)
[2018-06-26 16:58] LABS: BILIRUBIN,URINE NEGATIVE (NEGATIVE); CLARITY,URINE CLEAR; COLOR,URINE YELLOW; GLUCOSE, URINE (UA) NEGATIVE (NEGATIVE); KETONES,URINE 1+ (NEGATIVE); LEUKOCYTE ESTERASE ,URINE NEGATIVE (NEGATIVE); NITRITE,URINE NEGATIVE (NEGATIVE); PH,URINE 6 (5-9); PROTEIN,URINE NEGATIVE (NEGATIVE); UROBILINOGEN,URINE NORMAL (NORMAL)
[2018-06-26 17:08] LABS: YEAST,URINE FEW /HPF
[2018-06-26] MEDS: MONTELUKAST 10 MG (SINGULAIR) TAB PO SCH (17:50)
--- NOTE | 2018-06-26 19:19 | History & Physicial ---
History of Present Illness History of Present Illness Reason for visit/HPI Patient complains of being tired, weak, coughing. And congested. Patient has been for the emergency room previously. Patient into the office. Patient not feeling any better. Patient failed outpatient treatment. Patient gets up and feels exhausted. Patient takes a shower and is wiped out. Previous surgery tonsillectomy, to show this, complete hysterectomy. Family history Sr. had breast cancer. Father lung cancer. Son asthma head admits to dizziness and weakness Date of Admission Jun 26, 2018 at 10:21 Time Seen by a Provider: 19:15 I consulted on this patient on 06/26/18 19:09 Attending Physician Anthony Pandya DO Admitting Physician Anthony Pandya DO Consult Allergies and Home Medications Allergies Coded Allergies: adalimumab (Verified Allergy, Intermediate, SWOLLEN/REDNESS, 02/05/18) etanercept (Verified Allergy, Intermediate, REDNESS/SWELLING, 02/05/18) Home Medications Albuterol Sulfate 18 Gm Hfa.aer.ad, 2 PUFF INH Q6H PRN for SHORTNESS OF BREATH, (Reported) Calcium Carbonate/Vitamin D3 1 Each Tab.chew, 2 TAB.CHEW PO DAILY, (Reported) Estrogens Conjugated 1.25 Mg Tab, 1.25 MG PO DAILY, (Reported) Gabapentin 400 Mg Capsule, 400 MG PO TID, (Reported) Hydrocodone/Acetaminophen 1 Each Tablet, 1 TAB PO TID PRN for PAIN-MODERATE, ( Reported) Levalbuterol HCl 1.25 Mg/3 Ml Vial.neb, 1.25 MG NEB QID, (Reported) Loratadine/Pseudoephedrine 1 Each Tab.er.12h, 1 TAB PO Q12H PRN for CONGESTION, (Reported) Multivitamin 1 Each Tablet, 1 TAB PO DAILY, (Reported) Prednisone 10 Mg Tab, PO UD, (Reported) TAKE 2 TABS 2X DAILY X 2 DAYS THEN TAKE 1 TAB 3X DAILY X2 DAYS THEN TAKE 1 TAB 2X DAILY X 2 DAYS THEN 1 TAB DAILY START DATE 06-25-18 Promethazine HCl/Codeine 118 Ml Syrup, 7.5 ML PO TID PRN for COUGH, (Reported) Ranitidine HCl 150 Mg Tablet, 150 MG PO DAILY PRN for HEARTBURN, (Reported) Tofacitinib Citrate 11 Mg Tab.er.24h, 11 MG PO DAILY, (Reported) Trazodone HCl 50 Mg Tablet, 25 MG PO HS PRN for SLEEP, (Reported) Triamcinolone Acetonide 10.8 Ml [place], 2 SPRAYS NS BID, (Reported) Patient Home Medication List Home Medication List Reviewed: No Past Coomnue-Govhrc-Onnyxe Hx Patient Social History Alcohol Use: Rarely Uses Number of Drinks Today: 1 Alcohol Beverage of Choice: Wine Recreational Drug Use: No Smoking Status: Never a Smoker Physical Abuse Screen: No Sexual Abuse: No Recent Foreign Travel: No Contact w/other who traveled: No Recent Hopitalizations: No Recent Infectious Disease Expo: No Immunizations Up To Date Date of Pneumonia Vaccine: Aug 01, 2016 Date of Influenza Vaccine: Apr 01, 2018 Seasonal Allergies Seasonal Allergies: Yes Surgeries Yes (HYST/BSO; BILATERAL SHOULDER/LABRUM REPAIRS; ) Adenoidectomy, Hysterectomy, Oophorectomy, Orthopedic, Tonsillectomy Respiratory Yes (PNEUMONIA CHILD X 1, THEN AGAIN IN JANUARY 2018) Currently Using CPAP: No Currently Using BIPAP: No Cardiovascular No Neurological No Reproductive System Hx Reproductive Disorders: Yes 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, 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 Genitourinary No Gastrointestinal No Musculoskeletal Yes Arthritis, Rheumatoid Arthritis Endocrine History of Endocrine Disorders: No (hx hysterectomy ) HEENT History of HEENT Disorders: No Cancer No Psychosocial History of Psychiatric Problem: No Integumentary History of Skin or Integumenta: No Blood Transfusions History of Blood Disorders: No Family Medical History Family Hx: Arthritis Asthma Cataracts Completed stroke Dementia Gastroenteritis Hypercholesterolemia Hypertension Osteoporosis Respiratory disorder Seizure disorder Thyroid disease Review of Systems Constitutional: malaise, weakness EENTM: no symptoms reported Respiratory: cough, short of breath, wheezing Cardiovascular: no symptoms reported Gastrointestinal: no symptoms reported Genitourinary: no symptoms reported Musculoskeletal: other (Rheumatoid arthritis) Physical Exam Vital Signs Vital Signs - First Documented 06/26/18 10:33 Temp 98.7 Pulse 80 Resp 24 B/P (MAP) 131/62 (85) Pulse Ox 95 O2 Delivery Room Air Capillary Refill : Height, Weight, BMI Height: 5'7.00" Weight: 140lbs. 0.0oz. 63.323402ts; 21.9 BMI Method:Stated General Appearance: No Apparent Distress, WD/WN Eyes: Bilateral Eye Normal Inspection HEENT: Normal ENT Inspection Neck: Full Range of Motion, Normal Inspection Respiratory: No Accessory Muscle Use, No Respiratory Distress, Crackles, Decreased Breath Sounds, Other (Congestion) Cardiovascular: Regular Rate, Rhythm, No Murmur Assessment/Plan Assessment and Plan Bronchiolitis. Family outpatient treatment. Matured arthritis. Pneumonia Admission Diagnosis Admission Status: Observation Clinical Quality Measures DVT/VTE Risk/Contraindication: Risk Factor Score Per Nursin RFS Level Per Nursing on Admit: 2=Moderate ANTHONY PANDYA DO Jun 26, 2018 19:19
[2018-06-26 19:25] VITALS: BP 98/50
[2018-06-26] MEDS ORDERED: traZODone 50 MG (DESYREL) TAB PO PRN (19:30)
[2018-06-26] MEDS: ENOXAPARIN 40 MG/0.4 ML (LOVENOX) SYR SC SCH (20:39)
[2018-06-26] MEDS: GABAPENTIN 400 MG (NEURONTIN) CAP PO SCH (20:39)
[2018-06-26] MEDS: cefTRIAXone FOR IV USE 1,000 MG in NS (IVPB) 50 ML IV SCH (20:39)
[2018-06-27] MEDS: methylPREDNISolone 40 MG/ML (Solu-MEDROL) VIAL IV SCH ×5 (00:10→23:10)
[2018-06-27 00:12] VITALS: BP 110/59
[2018-06-27] MEDS: RT-ALBUTEROL SULF 2.5 MG/3 ML PRE-MIX VIAL INH SCH ×2 (02:17→07:12)
[2018-06-27] MEDS: NS IV 1000 ML 1,000 ML IV SCH ×2 (02:32→11:48)
[2018-06-27 04:02] VITALS: BP 115/60
[2018-06-27 06:50] LABS: BASOPHILS % (AUTO) 0 % (0-10); EOSINOPHILS % (AUTO) 0 % (0-10); HEMATOCRIT 32 % (35-52); HEMOGLOBIN 10.5 G/DL (11.5-16.0); LYMPHOCYTES # (AUTO) 0.6 X 10^3 (1.0-4.0); LYMPHOCYTES % (AUTO) 5 % (12-44); MEAN CORPUSCULAR HEMOGLOBIN 29 PG (25-34); MEAN CORPUSCULAR HGB CONC 32 G/DL (32-36); MEAN CORPUSCULAR VOLUME 88 FL (80-99); MEAN PLATELET VOLUME 8.5 FL (7.4-10.4); MONOCYTES # (AUTO) 0.2 X 10^3 (0.0-1.0); MONOCYTES % (AUTO) 2 % (0-12); NEUTROPHILS # (AUTO) 9.9 X 10^3 (1.8-7.8); NEUTROPHILS % (AUTO) 93 % (42-75); PLATELET COUNT 261 10^3/uL (130-400); RED BLOOD COUNT 3.68 10^6/uL (4.35-5.85); RED CELL DISTRIBUTION WIDTH 13.6 % (10.0-14.5); WHITE BLOOD COUNT 10.7 10^3/uL (4.3-11.0)
[2018-06-27 07:09] LABS: ALANINE AMINOTRANSFERASE 10 U/L (0-55); ALBUMIN 3.4 GM/DL (3.2-4.5); ALKALINE PHOSPHATASE 34 U/L (40-136); BILIRUBIN,TOTAL 0.1 MG/DL (0.1-1.0); BUN/CREATININE RATIO 13; CALCIUM 8.2 MG/DL (8.5-10.1); CARBON DIOXIDE 18 MMOL/L (21-32); CHLORIDE 111 MMOL/L (98-107); CREATININE SERUM 0.83 MG/DL (0.60-1.30); GFR ESTIMATED > 60; GLUCOSE 164 MG/DL (70-105); POTASSIUM 3.6 MMOL/L (3.6-5.0); SODIUM 141 MMOL/L (135-145); TOTAL PROTEIN 5.9 GM/DL (6.4-8.2)
[2018-06-27 08:00] VITALS: BP 120/57
--- NOTE | 2018-06-27 08:26 | Progress Note (SOAP) ---
Subjective Time Seen by a Provider: 08:23 Subjective/Events-last exam Patient feeling better today a little bit. When patient cough does have congestion. Renal insufficiency resolved. TSH 0.31 slightly low. Thyroid analyze ordered. Patient shaking with albuterol. Patient put on Xopenex. Focused Exam Lactate Level 06/26/18 11:15: Lactic Acid Level 1.01 Objective Exam Vital Signs Date Time Temp Pulse Resp B/P (MAP) Pulse Ox O2 Delivery O2 Flow Rate FiO2 06/27/18 07:12 96 Room Air 06/27/18 04:02 98.1 85 18 115/60 (78) 94 Room Air 06/27/18 02:17 96 Room Air 06/27/18 00:12 98.0 81 18 110/59 (76) 93 Room Air 06/26/18 21:40 94 Room Air 06/26/18 20:00 Room Air 06/26/18 19:25 97.4 80 20 98/50 (66) 92 Room Air 06/26/18 16:00 97.7 98 22 108/56 (73) 95 Room Air 06/26/18 15:25 97 Room Air 06/26/18 14:22 Room Air 06/26/18 10:33 98.7 80 24 131/62 (85) 95 Room Air I & O 06/27/18 07:00 Intake Total 650 ml Balance 650 ml Capillary Refill : General Appearance: No Apparent Distress, WD/WN HEENT: Normal ENT Inspection Neck: Normal Inspection Respiratory: No Accessory Muscle Use, No Respiratory Distress, Other ( Congestion with coughing) Gastrointestinal: non tender, soft Results Lab Laboratory Tests 06/26/18 11:15 06/27/18 05:53 Laboratory Tests 06/26/18 11:15: White Blood Count 8.1, Red Blood Count 4.52, Hemoglobin 13.1, Hematocrit 39, Mean Corpuscular Volume 86, Mean Corpuscular Hemoglobin 29, Mean Corpuscular Hemoglobin Concent 34, Red Cell Distribution Width 13.5, Platelet Count 318, Mean Platelet Volume 8.2, Neutrophils (%) (Auto) 85H, Lymphocytes (%) (Auto) 8L , Monocytes (%) (Auto) 8, Eosinophils (%) (Auto) 0, Basophils (%) (Auto) 0, Neutrophils # (Auto) 6.8, Lymphocytes # (Auto) 0.6L, Monocytes # (Auto) 0.6, Eosinophils # (Auto) 0.0, Basophils # (Auto) 0.0, Neutrophils % (Manual) 89, Lymphocytes % (Manual) 4, Monocytes % (Manual) 5, Eosinophils % (Manual) 0, Basophils % (Manual) 0, Band Neutrophils 2, Blood Morphology Comment NORMAL, Sodium Level 139, Potassium Level 4.2, Chloride Level 105, Carbon Dioxide Level 23, Anion Gap 11, Blood Urea Nitrogen 14, Creatinine 1.08, Estimat Glomerular Filtration Rate 51, BUN/Creatinine Ratio 13, Glucose Level 116H, Lactic Acid Level 1.01, Calcium Level 9.5, Corrected Calcium 9.5, Phosphorus Level 3.5, Magnesium Level 2.0, Total Bilirubin 0.4, Aspartate Amino Transf (AST/SGOT) 15, Alanine Aminotransferase (ALT/SGPT) 12, Alkaline Phosphatase 44, B-Type Natriuretic Peptide 18.0, Total Protein 7.0, Albumin 4.0, Thyroid Stimulating Hormone (TSH) 0.31L 06/26/18 16:32: Urine Color YELLOW, Urine Clarity CLEAR, Urine pH 6, Urine Specific [place] 1.015L, Urine Protein NEGATIVE, Urine Glucose (UA) NEGATIVE, Urine Ketones 1+H, Urine Nitrite NEGATIVE, Urine Bilirubin NEGATIVE, Urine Urobilinogen NORMAL, Urine Leukocyte Esterase NEGATIVE, Urine RBC (Auto) NEGATIVE, Urine RBC NONE, Urine WBC NONE, Urine Squamous Epithelial Cells 10-25H, Urine Crystals NONE, Urine Bacteria NONE, Urine Casts PRESENT, Urine Hyaline Casts 10-25H, Urine Mucus NEGATIVE, Urine Yeast FEWH, Urine Culture Indicated NO 06/27/18 05:53: White Blood Count 10.7, Red Blood Count 3.68L, Hemoglobin 10.5L, Hematocrit 32L , Mean Corpuscular Volume 88, Mean Corpuscular Hemoglobin 29, Mean Corpuscular Hemoglobin Concent 32, Red Cell Distribution Width 13.6, Platelet Count 261, Mean Platelet Volume 8.5, Neutrophils (%) (Auto) 93H, Lymphocytes (%) (Auto) 5L , Monocytes (%) (Auto) 2, Eosinophils (%) (Auto) 0, Basophils (%) (Auto) 0, Neutrophils # (Auto) 9.9H, Lymphocytes # (Auto) 0.6L, Monocytes # (Auto) 0.2, Eosinophils # (Auto) 0.0, Basophils # (Auto) 0.0, Sodium Level 141, Potassium Level 3.6, Chloride Level 111H, Carbon Dioxide Level 18L, Anion Gap 12, Blood Urea Nitrogen 11, Creatinine 0.83, Estimat Glomerular Filtration Rate > 60, BUN/ Creatinine Ratio 13, Glucose Level 164H, Calcium Level 8.2L, Corrected Calcium 8.7, Total Bilirubin 0.1, Aspartate Amino Transf (AST/SGOT) 10, Alanine Aminotransferase (ALT/SGPT) 10, Alkaline Phosphatase 34L, Total Protein 5.9L, Albumin 3.4 Assessment/Plan Assessment/Plan Assess & Plan/Chief Complaint Failure with outpatient treatment. Bronchiolitis. Renal insufficiency resolved. TSH low. Patient shaking with albuterol. Patient feeling a little better Clinical Quality Measures Admission Status Admission Dx Bronchiolitis. Family outpatient treatment. Matured arthritis. Pneumonia DVT/VTE Risk/Contraindication: Risk Factor Score Per Nursin RFS Level Per Nursing on Admit: 2=Moderate SAPPHIRE PANDYA DO Jun 27, 2018 08:26
[2018-06-27] MEDS: LORATADINE (CLARITIN) 10 MG TAB PO SCH (08:42)
[2018-06-27] MEDS: GABAPENTIN 400 MG (NEURONTIN) CAP PO SCH ×3 (08:42→20:25)
--- NOTE | 2018-06-27 08:45 | NUR ---
IVF DECREASED TO 60 CC/HR. PTS HOME MED NASACORT TO PHARMACY TO BE LABELED FOR HOSP USE.
[2018-06-27 08:49] LABS: FREE T4 (FREE THYROXINE) 0.94 NG/DL (0.70-1.48); TSH (THYROID ANALYZER) 0.1 UIU/ML (0.35-4.94)
[2018-06-27] MEDS: SALINE NASAL SPRAY (OCEAN) 45 ML BTL SCH (08:51)
[2018-06-27] MEDS: TRIAMCINOLONE NS SCH ×2 (09:58→20:25)
--- NOTE | 2018-06-27 11:05 | Pulmonary Progress Note ---
Subjective Time Seen by a Provider: 11:05 Subjective/Events-last exam Pt appears to be doing better. Sepsis Event Evaluation Height, Weight, BMI Height: 5'7.00" Weight: 140lbs. 0.0oz. 63.973649cy; 21.9 BMI Method:Stated Focused Exam Lactate Level 06/26/18 11:15: Lactic Acid Level 1.01 Exam Exam Vital Signs Date Time Temp Pulse Resp B/P (MAP) Pulse Ox O2 Delivery O2 Flow Rate FiO2 06/27/18 08:00 97.8 95 16 120/57 (78) 93 Room Air 06/27/18 07:12 96 Room Air 06/27/18 04:02 98.1 85 18 115/60 (78) 94 Room Air 06/27/18 02:17 96 Room Air 06/27/18 00:12 98.0 81 18 110/59 (76) 93 Room Air 06/26/18 21:40 94 Room Air 06/26/18 20:00 Room Air 06/26/18 19:25 97.4 80 20 98/50 (66) 92 Room Air 06/26/18 16:00 97.7 98 22 108/56 (73) 95 Room Air 06/26/18 15:25 97 Room Air 06/26/18 14:22 Room Air I & O 06/27/18 07:00 Intake Total 650 ml Balance 650 ml Height & Weight Height: 5'7.00" Weight: 140lbs. 0.0oz. 63.671631ts; 21.9 BMI Method:Stated General Appearance: No Apparent Distress, WD/WN HEENT: Normal ENT Inspection Neck: Normal Inspection Respiratory: No Accessory Muscle Use, No Respiratory Distress, Other ( Congestion with coughing) Cardiovascular: Regular Rate, Rhythm, No Murmur Gastrointestinal: non tender, soft Results Lab Laboratory Tests 06/26/18 11:15 06/27/18 05:53 Assessment/Plan Assessment/Plan Asthma AE/ Acute bronchiolitis r/o pneumonia - failed out patient tx -Solumedrol 40Q 6 -SVNs Q 4 -CXR is clear. JAIME TANG DO Jun 27, 2018 11:05
[2018-06-27 12:00] VITALS: BP 115/55
[2018-06-27] MEDS: RT-LEVALBUTEROL (XOPENEX) 1.25 MG/3 ML NEB NON-FORMULARY INH SCH ×2 (14:36→22:07)
[2018-06-27 16:10] VITALS: BP 112/55
[2018-06-27] MEDS: ENOXAPARIN 40 MG/0.4 ML (LOVENOX) SYR SC SCH (18:49)
[2018-06-27 20:00] VITALS: BP 120/56
[2018-06-27] MEDS: cefTRIAXone FOR IV USE 1,000 MG in NS (IVPB) 50 ML IV SCH (20:25)
[2018-06-27] MEDS: MONTELUKAST 10 MG (SINGULAIR) TAB PO SCH (20:25)
[2018-06-28] VITALS: BP 117/59
[2018-06-28 04:00] VITALS: BP 139/68
[2018-06-28] MEDS: NS IV 1000 ML 1,000 ML IV SCH (05:02)
[2018-06-28] MEDS: methylPREDNISolone 40 MG/ML (Solu-MEDROL) VIAL IV SCH (05:16)
[2018-06-28 06:02] LABS: BASOPHILS % (AUTO) 0 % (0-10); EOSINOPHILS % (AUTO) 0 % (0-10); HEMATOCRIT 32 % (35-52); HEMOGLOBIN 10.2 G/DL (11.5-16.0); LYMPHOCYTES # (AUTO) 0.7 X 10^3 (1.0-4.0); LYMPHOCYTES % (AUTO) 4 % (12-44); MEAN CORPUSCULAR HEMOGLOBIN 29 PG (25-34); MEAN CORPUSCULAR HGB CONC 32 G/DL (32-36); MEAN CORPUSCULAR VOLUME 89 FL (80-99); MEAN PLATELET VOLUME 8.5 FL (7.4-10.4); MONOCYTES # (AUTO) 0.6 X 10^3 (0.0-1.0); MONOCYTES % (AUTO) 3 % (0-12); NEUTROPHILS # (AUTO) 17.7 X 10^3 (1.8-7.8); NEUTROPHILS % (AUTO) 93 % (42-75); PLATELET COUNT 248 10^3/uL (130-400); RED BLOOD COUNT 3.55 10^6/uL (4.35-5.85); RED CELL DISTRIBUTION WIDTH 14.3 % (10.0-14.5)
[2018-06-28 06:21] LABS: BUN/CREATININE RATIO 13; CALCIUM 8.3 MG/DL (8.5-10.1); CARBON DIOXIDE 18 MMOL/L (21-32); CHLORIDE 113 MMOL/L (98-107); CREATININE SERUM 0.77 MG/DL (0.60-1.30); GFR ESTIMATED > 60; GLUCOSE 141 MG/DL (70-105); POTASSIUM 4.1 MMOL/L (3.6-5.0); SODIUM 141 MMOL/L (135-145)
[2018-06-28] MEDS: RT-LEVALBUTEROL (XOPENEX) 1.25 MG/3 ML NEB NON-FORMULARY INH SCH (06:33)
[2018-06-28 08:00] VITALS: BP 114/63
--- NOTE | 2018-06-28 08:24 | Pulmonary Progress Note ---
Subjective Time Seen by a Provider: 08:23 Subjective/Events-last exam Pt appears to be doing better. No compilations noted. Sepsis Event Evaluation Height, Weight, BMI Height: 5'7.00" Weight: 140lbs. 0.0oz. 63.715145se; 21.9 BMI Method:Stated Focused Exam Lactate Level 06/26/18 11:15: Lactic Acid Level 1.01 Exam Exam Vital Signs Date Time Temp Pulse Resp B/P (MAP) Pulse Ox O2 Delivery O2 Flow Rate FiO2 06/28/18 06:34 95 Room Air 06/28/18 04:00 97.8 69 18 139/68 (91) 96 Room Air 06/28/18 00:00 97.5 73 18 117/59 (78) 95 Room Air 06/27/18 22:07 95 Room Air 06/27/18 20:00 Room Air 06/27/18 20:00 97.4 74 16 120/56 (77) 93 Room Air 06/27/18 16:10 98.5 92 16 112/55 (74) 92 Room Air 06/27/18 14:36 96 Room Air 06/27/18 12:00 97.4 80 18 115/55 (75) 93 Room Air I & O 06/28/18 07:00 Intake Total 2371 ml Balance 2371 ml Height & Weight Height: 5'7.00" Weight: 140lbs. 0.0oz. 63.263253tg; 21.9 BMI Method:Stated General Appearance: No Apparent Distress, WD/WN HEENT: Normal ENT Inspection Neck: Normal Inspection Respiratory: No Accessory Muscle Use, No Respiratory Distress, Other ( Congestion with coughing) Cardiovascular: Regular Rate, Rhythm, No Murmur Gastrointestinal: non tender, soft Results Lab Laboratory Tests 06/26/18 11:15 06/27/18 05:53 06/28/18 05:39 Assessment/Plan Assessment/Plan Asthma AE/ Acute bronchiolitis r/o pneumonia - failed out patient tx -Solumedrol 40Q 6 -- change to prednisone taper -SVNs Q 4 -CXR is clear. Leukocytosis secondary to steroids- No Abx needed. Pt is ok for discharge from pulmonary standpoint. I will f/u with her in my office in 2-3 wks. JAIME TANG DO Jun 28, 2018 08:24
[2018-06-28] MEDS ORDERED: predniSONE 10 MG TAB PO SCH (09:00)
[2018-06-28] MEDS: LORATADINE (CLARITIN) 10 MG TAB PO SCH (11:02)
[2018-06-28] MEDS: GABAPENTIN 400 MG (NEURONTIN) CAP PO SCH (11:02)
[2018-06-28] MEDS: TRIAMCINOLONE NS SCH (11:05)
[2018-06-28 12:00] VITALS: BP 131/66
[2018-06-28] MEDS ORDERED: PRED10TA22 PO (12:13)
[2018-06-28] MEDS ORDERED: CEFD300C3 PO (12:13)
--- NOTE | 2018-06-28 12:14 | Discharge Summary-Hospitalist ---
Diagnosis/Chief Complaint Date of Admission Jun 26, 2018 at 10:21 Date of Discharge Discharge Date: Jun 28, 2018 Discharge Diagnosis (1) Acute bacterial bronchitis Status: Acute (2) Acute asthma exacerbation Status: Acute (3) Rheumatoid arthritis Status: Chronic Discharge Summary Discharge Physical Exam Allergies: Coded Allergies: adalimumab (Verified Allergy, Intermediate, SWOLLEN/REDNESS, 02/05/18) etanercept (Verified Allergy, Intermediate, REDNESS/SWELLING, 02/05/18) Vitals & I&Os Vital Signs Date Time Temp Pulse Resp B/P (MAP) Pulse Ox O2 Delivery O2 Flow Rate FiO2 06/28/18 08:00 98.2 89 20 114/63 (80) 94 Room Air General Appearance: No Apparent Distress, WD/WN Respiratory: Chest Non Tender, Normal Breath Sounds, No Accessory Muscle Use, No Respiratory Distress, Crackles, Wheezing Cardiovascular: Regular Rate, Rhythm, No Edema, No Gallop, No JVD, No Murmur, Normal Peripheral Pulses Neurologic/Psychiatric: Alert, Oriented x3, No Motor/Sensory Deficits, Normal Mood/Affect Hospital Course Hospital course: Patient was admitted for IV steroids and empiric antibiotics due to failure of outpatient treatment for exacerbation of COPD with bacterial bronchitis. Dr. Chung saw her in consultation patient improved immensely she was able to ambulate and return back to her normal baseline function with only slight wheeze on expiration at discharge. Patient was deemed stable for discharge on steroid taper dose with cefdinir for coverage of acute bacterial bronchitis he'll be seen close follow-up with Dr. Chung and Dr. Warner. Labs (last 24 hrs) Laboratory Tests 06/28/18 05:39: White Blood Count 19.0H, Red Blood Count 3.55L, Hemoglobin 10.2L, Hematocrit 32L , Mean Corpuscular Volume 89, Mean Corpuscular Hemoglobin 29, Mean Corpuscular Hemoglobin Concent 32, Red Cell Distribution Width 14.3, Platelet Count 248, Mean Platelet Volume 8.5, Neutrophils (%) (Auto) 93H, Lymphocytes (%) (Auto) 4L , Monocytes (%) (Auto) 3, Eosinophils (%) (Auto) 0, Basophils (%) (Auto) 0, Neutrophils # (Auto) 17.7H, Lymphocytes # (Auto) 0.7L, Monocytes # (Auto) 0.6, Eosinophils # (Auto) 0.0, Basophils # (Auto) 0.0, Sodium Level 141, Potassium Level 4.1, Chloride Level 113H, Carbon Dioxide Level 18L, Anion Gap 10, Blood Urea Nitrogen 10, Creatinine 0.77, Estimat Glomerular Filtration Rate > 60, BUN/ Creatinine Ratio 13, Glucose Level 141H, Calcium Level 8.3L Patient resulted labs reviewed. Pending Labs Laboratory Tests 06/28/18 05:39: White Blood Count 19.0, Red Blood Count 3.55, Hemoglobin 10.2, Hematocrit 32, Mean Corpuscular Volume 89, Mean Corpuscular Hemoglobin 29, Mean Corpuscular Hemoglobin Concent 32, Red Cell Distribution Width 14.3, Platelet Count 248, Mean Platelet Volume 8.5, Neutrophils (%) (Auto) 93, Lymphocytes (%) (Auto) 4, Monocytes (%) (Auto) 3, Eosinophils (%) (Auto) 0, Basophils (%) (Auto) 0, Neutrophils # (Auto) 17.7, Lymphocytes # (Auto) 0.7, Monocytes # (Auto) 0.6, Eosinophils # (Auto) 0.0, Basophils # (Auto) 0.0, Sodium Level 141, Potassium Level 4.1, Chloride Level 113, Carbon Dioxide Level 18, Anion Gap 10, Blood Urea Nitrogen 10, Creatinine 0.77, Estimat Glomerular Filtration Rate > 60, BUN/ Creatinine Ratio 13, Glucose Level 141, Calcium Level 8.3 Discussion & Recommendations Discharge Planning: <30 minutes discharge planning Discharge Home Medications: Active Scripts Active Prednisone 10 Mg Tab.ds.pk 10 Mg PO DAILY Take 6 tabs(60mg)daily,decrease by 1 tab(10MG)daily. Cefdinir 300 Mg Capsule 300 Mg PO BID Reported Ventolin Hfa (Albuterol Sulfate) 18 Gm Hfa.aer.ad 2 Puff INH Q6H PRN Levalbuterol HCl 1.25 Mg/3 Ml Vial.neb 1.25 Mg NEB QID Xeljanz Xr (Tofacitinib Citrate) 11 Mg Tab.er.24h 11 Mg PO DAILY Daily Value (Multivitamin) 1 Each Tablet 1 Tab PO DAILY Zantac (Ranitidine HCl) 150 Mg Tablet 150 Mg PO DAILY PRN Trazodone HCl 50 Mg Tablet 25 Mg PO HS PRN Alavert D-12 Allergy-Sinus Tab (Loratadine/Pseudoephedrine) 1 Each Tab.er.12h 1 Tab PO Q12H PRN Nasacort (Triamcinolone Acetonide) 10.8 Ml [place] 2 Sprays NS BID Promethazine-Codeine Syrup (Promethazine HCl/Codeine) 118 Ml Syrup 7.5 Ml PO TID PRN Premarin (Estrogens Conjugated) 1.25 Mg Tab 1.25 Mg PO DAILY Gabapentin 400 Mg Capsule 400 Mg PO TID Calcium 500+D Tablet Chew (Calcium Carbonate/Vitamin D3) 1 Each Tab.chew 2 Tab.chew PO DAILY Hydrocodone-Acetamin 7.5-325 (Hydrocodone/Acetaminophen) 1 Each Tablet 1 Tab PO TID PRN Instructions to patient/family Please see electronic discharge instructions given to patient. Clinical Quality Measures DVT/VTE Risk/Contraindication: Risk Factor Score Per Nursin RFS Level Per Nursing on Admit: 2=Moderate Problem Qualifiers (1) Acute asthma exacerbation: Asthma severity: moderate Asthma persistence: persistent Qualified Codes: J45.41 - Moderate persistent asthma with (acute) exacerbation (2) Rheumatoid arthritis: Rheumatoid arthritis location: unspecified site Rheumatoid factor presence: unspecified presence Qualified Codes: M06.9 - Rheumatoid arthritis, unspecified LOGAN ZAIDI DO Jun 28, 2018 12:14
== END 2018-06-28 12:13 | disposition home or self-care (01) ==
LOC: UNDOADMOB 10:21 → 4TH 10:21 → UNDODISOB 06-28 12:55
PROVIDERS: ADMIT Family Medicine; ATTEND Family Medicine
DX: J20.9 Acute bronchitis, unspecified (principal); J45.41 Moderate persistent asthma with (acute) exacerbation; M06.9 Rheumatoid arthritis, unspecified; Z79.899 Other long term (current) drug therapy; D72.829 Elevated white blood cell count, unspecified; T38.0X5A Adverse effect of glucocorticoids and synthetic analogues, initial encounter
CPT/HCPCS: 36415; 71046; 80048; 80053; 81000; 83605; 83735; 83880; 84100; 84439; 84443; 85007; 85025; 85027; 94640; 94760; 99211; G0378

== ENCOUNTER → 2018-10-01 | Outpatient (CLI) | payer BC ==
[~2018-10-01] MED LIST changes: +ALBU18HF2 INH; +CODE118S4 PO; +LEVA1.2543 NEB; +LORA1TAB38 PO; +MULT-633 PO; +PRD10T PO; +RANI150T46 PO; +TRAZ-189 PO; +TRIA10.8 NS
--- NOTE | 2018-10-01 15:11 | Diagnostic Imaging Report ---
PROCEDURE: CT chest without contrast. TECHNIQUE: Multiple contiguous axial images were obtained through the chest without the use of intravenous contrast. Auto Exposure Controls were utilized during the CT exam to meet ALARA standards for radiation dose reduction. INDICATION: Followup lung nodule. Correlation is made with prior CT chest from 04/11/2018. No axillary lymphadenopathy is seen. Hilar and mediastinal evaluation is limited without intravenous contrast. No pericardial or pleural fluid is detected. A tiny nodular density in the posterior right lower lobe is barely seen measuring approximately 4 to 5 mm on today's exam. No new nodule is detected. The upper abdomen is unremarkable. IMPRESSION: Stable noncontrast CT chest and right lower lobe pulmonary nodule when compared to exam from 04/11/2018. Dictated by: Dictated on workstation # [id number]
== END ==
LOC: RAD 13:52
PROVIDERS: ATTEND Nurse Practitioner Family
DX: R91.1 Solitary pulmonary nodule (principal)
CPT/HCPCS: 71250

== ENCOUNTER → 2018-11-20 | Outpatient (CLI) | payer BC ==
[~2018-11-20] MED LIST changes: -CALC-8 PO; -TRAZ-189 PO; +TRAZ-222 PO; +[UNRECOGNIZED DRUG - CODE] PO
[2018-11-20 15:44] LABS: BASOPHILS % (AUTO) 0 % (0-10); EOSINOPHILS # (AUTO) 0.1 10^3/uL (0.0-0.3); EOSINOPHILS % (AUTO) 2 % (0-10); HEMATOCRIT 38 % (35-52); HEMOGLOBIN 12.6 G/DL (11.5-16.0); LYMPHOCYTES # (AUTO) 1.2 X 10^3 (1.0-4.0); LYMPHOCYTES % (AUTO) 22 % (12-44); MEAN CORPUSCULAR HEMOGLOBIN 28 PG (25-34); MEAN CORPUSCULAR HGB CONC 33 G/DL (32-36); MEAN CORPUSCULAR VOLUME 84 FL (80-99); MEAN PLATELET VOLUME 8.7 FL (7.4-10.4); MONOCYTES # (AUTO) 0.6 X 10^3 (0.0-1.0); MONOCYTES % (AUTO) 10 % (0-12); NEUTROPHILS # (AUTO) 3.6 X 10^3 (1.8-7.8); NEUTROPHILS % (AUTO) 65 % (42-75); PLATELET COUNT 248 10^3/uL (130-400); RED CELL DISTRIBUTION WIDTH 12.7 % (10.0-14.5); WHITE BLOOD COUNT 5.5 10^3/uL (4.3-11.0)
[2018-11-20 16:04] LABS: ALANINE AMINOTRANSFERASE 14 U/L (0-55); ALBUMIN 4.1 GM/DL (3.2-4.5); ALKALINE PHOSPHATASE 36 U/L (40-136); BILIRUBIN,TOTAL 0.4 MG/DL (0.1-1.0); BUN/CREATININE RATIO 17; CALCIUM 9.4 MG/DL (8.5-10.1); CARBON DIOXIDE 23 MMOL/L (21-32); CHLORIDE 110 MMOL/L (98-107); CREATININE SERUM 0.82 MG/DL (0.60-1.30); GFR ESTIMATED > 60; GLUCOSE 92 MG/DL (70-105); POTASSIUM 4.3 MMOL/L (3.6-5.0); SODIUM 143 MMOL/L (135-145); TOTAL PROTEIN 6.6 GM/DL (6.4-8.2)
== END ==
LOC: LAB 15:32
PROVIDERS: ATTEND Family Medicine
DX: R53.1 Weakness (principal); M54.9 Dorsalgia, unspecified; R11.0 Nausea
CPT/HCPCS: 36415; 80053; 85025

== ENCOUNTER → 2019-02-23 | Outpatient (CLI) | payer BC ==
[~2019-02-23] MED LIST changes: +RANI-613 PO; -RANI150T46 PO
--- NOTE | 2019-02-23 22:27 | Diagnostic Imaging Report ---
INDICATION: Screening. The current study was also evaluated with a Computer Aided Detection (CAD) system. 3-D Tomographic imaging was also performed. Comparison is made with prior examination 12/24/2017, 11/14/2016 and 12/23/2013. FINDINGS: There are scattered fibroglandular densities bilaterally. There is an unchanged lymph node in the upper-outer right breast. There is no new dominant mass, spiculated lesion or suspicious calcification identified. There are a few benign-type calcifications. The skin, nipples and axillae are unremarkable. IMPRESSION: ACR BI-RADS Category 2: Benign findings. Result letter will be mailed to the patient. Note: At least 10% of breast cancer is not imaged by mammography. Dictated by: Dictated on workstation # [id number]
== END ==
LOC: RAD 10:52
PROVIDERS: ATTEND Nurse Practitioner
DX: Z12.31 Encounter for screening mammogram for malignant neoplasm of breast (principal); Z01.419 Encounter for gynecological examination (general) (routine) without abnormal findings
CPT/HCPCS: 77067

== ENCOUNTER → 2019-03-25 | Outpatient (CLI) | payer BC ==
--- NOTE | 2019-03-25 09:04 | Diagnostic Imaging Report ---
PROCEDURE: MR imaging cervical spine without contrast. TECHNIQUE: Multiplanar, multisequence MR imaging of the cervical spine was performed without contrast. INDICATION: Pain and stiffness in the neck. No prior studies are available for comparison. Curvature and alignment of the cervical spine is normal. Vertebral body marrow signal is normal. No geographic marrow lesion is seen. There is some generalized degenerative disc disease with variable disc space narrowing and desiccation. The cervical cord demonstrates normal homogeneous signal intensity and normal morphology. Craniocervical junction is unremarkable. C2-3: The central canal and neural foramina are widely patent. C3-4: Endplate osteophytes indent the ventral thecal sac. No significant central canal or neural foraminal narrowing is seen. C4-5: Endplate osteophytes and uncovertebral joint degenerative change are noted. There is mild to moderate bilateral neural foraminal narrowing. Central canal is patent. C5-6: Endplate osteophytes and uncovertebral joint degenerative change are noted. Central canal is patent. There is mild to moderate right neural foraminal narrowing. Left neural foramen is patent. C6-7: Endplate osteophytes noted. Central canal and neural foramina are widely patent. C7-T1: Central canal and neural foramina are widely patent. IMPRESSION: Cervical spondylosis with multilevel neural foraminal narrowing. No definite central canal stenosis is identified. Dictated by: Dictated on workstation # [id number]
--- NOTE | 2019-03-25 09:18 | Diagnostic Imaging Report ---
PROCEDURE: MRI lumbar spine. TECHNIQUE: Multiplanar, multisequence MRI of the lumbar spine was performed without contrast. INDICATION: Low back pain. Correlation is made with prior MRI of the lumbar spine from 12/20/2010. FINDINGS: Curvature and alignment of the lumbar spine is normal. Vertebral body heights are maintained. The marrow signal intensity is unremarkable. No geographic marrow lesion is seen apart from a benign hemangioma within the L1 vertebral body. No acute compression fracture is seen. There is fairly normal height and hydration to the lumbar intervertebral discs. The conus is unremarkable at the T12-L1 level. T12-L1: Central canal and neural foramina are widely patent. L1-L2: No central canal or neural foraminal narrowing is seen. L2-L3: No central canal or neural foraminal narrowing is seen. L3-L4: There is some ligamentous thickening but central canal is widely patent. Neural foramina are patent. L4-L5: There is some ligamentous thickening, but central canal is widely patent. There is some mild broad-based annular bulging which narrows the lateral recesses bilaterally. There is also very mild neural foraminal narrowing. L5-S1: Central canal is widely patent. There is moderate bilateral neural foraminal narrowing due to broad-based disc bulging. The paraspinous tissues are unremarkable. IMPRESSION: Mild neural foraminal and lateral recess narrowing described level by level above. No central canal stenosis is seen. No acute compression fracture is identified. Dictated by: Dictated on workstation # [id number]
== END ==
LOC: RAD 08:00
DX: M48.07 Spinal stenosis, lumbosacral region (principal); M51.26 Other intervertebral disc displacement, lumbar region
CPT/HCPCS: 72141; 72148

== ENCOUNTER → 2019-10-05 | Outpatient (CLI) | payer BC ==
[~2019-10-05] MED LIST changes: +CATHETER FLUSH 10 ML SYR IV PRN; +HOLD METFORMIN - RECEIVED CONTRAST 20 ML VIAL IV SCH; +HYDR-34 PO; -HYDR-3816 PO; +IOHEXOL 350 MG/ML 100 ML (OMNIPAQUE 350) VIAL IV ONE; +NS 100 ML (IVPB) BAG IV ONE; -TRAZ-222 PO; +TRZ50T PO
[2019-10-05 09:34] LABS: CREATININE SERUM 1.05 MG/DL (0.60-1.30)
--- NOTE | 2019-10-05 10:09 | Diagnostic Imaging Report ---
INDICATION: Lung nodule TECHNIQUE: Multiple contiguous axial images were obtained through the chest after administration of intravenous contrast. Auto Exposure Controls were utilized during the CT exam to meet ALARA standards for radiation dose reduction. Comparison made to prior study of 10/01/2018. There are no enlarged mediastinal or hilar nodes. There are no enlarged axillary nodes or chest wall lesions. There is no pleural or pericardial fluid. Visualized portions of the upper abdomen are unremarkable except for incidental gallstone in the gallbladder. Lung parenchymal windows demonstrate some dependent atelectatic changes in the lung bases. There is a small 4 to 5 mm nodule in the right lower lobe, unchanged compared to the previous study. No new nodules are visualized. This also appears unchanged compared to 04/11/2018. IMPRESSION: There is a stable 4 to 5 mm nodule in the right lower lobe, unchanged from 10/01/2018 and 04/11/2018. Would recommend follow-up study in 6 months, if at that time there remains unchanged, this can be considered benign. There is some mild dependent atelectatic change in both lung bases. There is an incidental gallstone in the gallbladder. Dictated by: Dictated on workstation # [id number]
== END ==
LOC: RAD 08:45
PROVIDERS: ATTEND Internal Medicine Critical Care Medicine
DX: Z01.812 Encounter for preprocedural laboratory examination (principal); R91.1 Solitary pulmonary nodule; J45.909 Unspecified asthma, uncomplicated; J98.11 Atelectasis
CPT/HCPCS: 36415; 71260; 82565; 84520

== ENCOUNTER → 2020-02-25 | Outpatient (CLI) | payer BC ==
[~2020-02-25] MED LIST changes: -CATHETER FLUSH 10 ML SYR IV PRN; -HOLD METFORMIN - RECEIVED CONTRAST 20 ML VIAL IV SCH; -IOHEXOL 350 MG/ML 100 ML (OMNIPAQUE 350) VIAL IV ONE; -NS 100 ML (IVPB) BAG IV ONE
--- NOTE | 2020-02-25 14:25 | Diagnostic Imaging Report ---
INDICATION: Routine screening. Comparison is made with prior mammogram 02/23/2019, 12/24/2017. 2-D and 3-D bilateral screening mammography was performed with CAD. Scattered fibroglandular densities are identified bilaterally. Intraparenchymal lymph node outer right breast is stable. No new mass or malignant appearing microcalcifications are identified. Axillae are unremarkable. IMPRESSION: BI-RADS Category 2 No mammographic features suspicious for malignancy are identified. ACR BI-RADS Category 2: Benign findings. Result letter will be mailed to the patient. Note: At least 10% of breast cancer is not imaged by mammography. Dictated by: Dictated on workstation # [id number]
== END ==
LOC: RAD 11:15
PROVIDERS: ATTEND Surgery
DX: Z12.31 Encounter for screening mammogram for malignant neoplasm of breast (principal)
CPT/HCPCS: 77063; 77067

== ENCOUNTER → 2020-03-16 | Outpatient (CLI) | payer BC | LOC: LABNPT 06:05 | PROVIDERS: ATTEND Orthopaedic Surgery | DX: Z01.812 Encounter for preprocedural laboratory examination (principal); Z20.828 Contact with and (suspected) exposure to other viral communicable diseases | CPT/HCPCS: 87635 ==

== ENCOUNTER 2020-05-16 05:31 | Outpatient (RCR) | payer BC ==
[~2020-05-16] VITALS: Ht 170.2 cm; Wt 161.2 kg
== END 2020-05-16 09:16 | disposition home or self-care (01) ==
LOC: PREOP 05:31
PROVIDERS: ATTEND Surgery
DX: Z01.812 Encounter for preprocedural laboratory examination (principal); Z12.11 Encounter for screening for malignant neoplasm of colon; Z86.010 Personal history of colon polyps; Z20.828 Contact with and (suspected) exposure to other viral communicable diseases
CPT/HCPCS: 87635

== ENCOUNTER 2020-05-18 08:47 | Day surgery (SDC) | payer BC ==
[~2020-05-18] VITALS: Ht 170.2 cm; Wt 61.3 kg
[2020-05-18] VITALS (13 sets, daily range): BP systolic 94–134; BP diastolic 53–75
[2020-05-18] MEDS ORDERED: NS IV 500 ML 500 ML ONE (08:51)
[2020-05-18] MEDS ORDERED: NS IV 500 ML 500 ML IV PRN (08:53)
[2020-05-18] MEDS ORDERED: LIDOCAINE JELLY 2% 6 ML SYRINGE MM PRN (09:00)
[2020-05-18] MEDS ORDERED: MIDAZOLAM 5 MG/5 ML (VERSED) VIAL IV ONE (09:00)
[2020-05-18] MEDS ORDERED: fentaNYL INJECTION 100 MCG/2 ML AMP IVP ONE (09:00)
[2020-05-18] MEDS ORDERED: FOLI0.4T2 PO (09:07)
[2020-05-18] MEDS ORDERED: METH1VIA2 IJ (09:07)
[2020-05-18] MEDS ORDERED: HYDR200T46 PO (09:10)
[2020-05-18] MEDS ORDERED: CYCL10TA9 PO (09:10)
[2020-05-18] MEDS ORDERED: FLUT1BLS IH (09:12)
[2020-05-18] MEDS ORDERED: LIDOCAINE JELLY 2% 6 ML SYRINGE ONE (10:34)
[2020-05-18] MEDS ORDERED: fentaNYL INJECTION 100 MCG/2 ML AMP ONE ×2 (10:35)
[2020-05-18] MEDS ORDERED: MIDAZOLAM 5 MG/5 ML (VERSED) VIAL ONE ×2 (10:35)
--- NOTE | 2020-05-18 10:45 | Conscious Sedation/ASA ---
Conscious Sedation Pre-Proced Time 10:30 ASA Score 2 For ASA 3 and 4: Consider anesthesia and medical clearance. Also, for patients with a history of failed moderate sedation consider anesthesia. Airway Lungs Heart ASA score ASA 1: a normal healthy patient ASA 2: a patient with a mild systemic disease (mid diabetes, controlled hypertension, obesity ASA 3: a patient with a severe systemic disease that limits activity (angina, COPD, prior Myocardial infarction) ASA 4: a patient with an incapacitating disease that is a constant threat to life (CHF, renal failure) ASA 5: a moribund patient not expected to survive 24 hrs. (ruptured aneurysm) ASA 6: a declared brain- patient whose organs are being harvested. For emergent operations, add the letter E after the classification Mallampati Classification Grade 2 Sedation Plan Analgesia, Amnesia, Plan communicated to team members, Discussed options with patient/fam, Discussed risks with patient/fam The patient is an appropriate candidate to undergo the planned procedure, sedation, and anesthesia. The patient immediately re-assessed prior to indication. TOLU TEJEDA MD May 18, 2020 10:45
--- NOTE | 2020-05-18 10:46 | Progress Note-Pre Operative ---
Pre-Operative Progress Note H&P Reviewed The H&P was reviewed, patient examined and no changes noted. Date Seen by Provider: May 18, 2020 Time Seen by Provider: 10:30 Date H&P Reviewed: May 18, 2020 Time H&P Reviewed: 10:30 Pre-Operative Diagnosis: family hx, screening TOLU TEJEDA MD May 18, 2020 10:45
[2020-05-18] MEDS ORDERED: ONDANSETRON 4 MG/2 ML (SDV) Z0FRAN ONE (10:47)
--- NOTE | 2020-05-18 10:47 | Discharge Inst-Surgical ---
D/C Lap Instructions-NIKHIL Follow Up Activity as tolerated High Fiber Diet 25g or more per day Avoid Alcohol, Caffeine, Spicy [place] and Acid foods. Drink 64 fluid oz or more of fluids per day. Symptoms to Report: Fever over 101 degree F, Nausea/Vomiting If any problems/questions: Contact your physician or go to Emergency Room TOLU TEJEDA MD May 18, 2020 10:47
[2020-05-18] MEDS ORDERED: HYDROcodone/APAP 5 MG/325 MG (LORTAB) TAB PO PRN (11:00)
[2020-05-18] MEDS ORDERED: morphine INJ 10 MG/ML 1ML (SYR OR VIAL) IVP PRN ×2 (11:00)
[2020-05-18] MEDS ORDERED: ONDANSETRON 4 MG/2 ML (SDV) Z0FRAN IVP PRN (11:00)
[2020-05-18] MEDS ORDERED: ACETAMINOPHEN 325 MG TABLET PO PRN (11:00)
--- NOTE | 2020-05-18 11:35 | Progress Note-Post Operative ---
Post-Operative Progess Note Surgeon (s)/Coal And [employer] Supervisor (s) Surgeon TOLU TEJEDA MD [place] Supervisor: none Pre-Operative Diagnosis family hx, screening Post-Operative Diagnosis mild chronic stage 2 ext and int hemorrhoids, mild patch anal canal inflammation, mild diverticulosis. Procedure & Operative Findings Date of Procedure 05/18/20 Procedure Performed/Findings colonoscopy with bx. Anesthesia Type cs Estimated Blood Loss Estimated blood loss (mL): minimal Specimens/Packing Specimens Removed anal canal inflammation. TOLU TEJEDA MD May 18, 2020 11:35
--- NOTE | 2020-05-18 12:22 | OPERATIVE REPORT ---
DATE OF SERVICE: 05/18/2020 ATTENDING PRIMARY CARE PHYSICIAN: Dr. Anthony Warner. PREOPERATIVE DIAGNOSIS: Screening colonoscopy with family history of colon cancer. POSTOPERATIVE DIAGNOSES: Mild chronic stage II external and internal hemorrhoids, small amount of inflammation of the anal canal, which appears to be nonspecific and mild sigmoid diverticulosis. PROCEDURE PERFORMED: Colonoscopy with biopsy. SURGEON: Tolu Tejeda MD. ANESTHESIA: Conscious sedation. ESTIMATED BLOOD LOSS: Minimal. FINDINGS: Same as postoperative diagnoses. DISPOSITION: The patient tolerated the procedure well. INDICATIONS FOR PROCEDURE: The patient is a 64-year-old female known to us. We had seen her in 12/2012 for a colonoscopy. She was found to have a mild sigmoid diverticulosis. She had also reported on previous colonoscopies she did have a polyp in 2007, which was biopsied and consistent with a benign adenoma. She does have a family history of colon cancer with her sister being diagnosed with the disease. DESCRIPTION OF PROCEDURE: The patient was brought to the endoscopy suite and laid in the left lateral decubitus position. After adequate IV pain and stated medications and conscious sedation anesthesia, a digital rectal examination was performed. Mild chronic stage II external and internal hemorrhoids were not actively edematous nor inflamed as well as no bleeding. Normal sphincter tone was felt and there were no palpable masses. The endoscope was then intubated and anus and rectum gently insufflated. In the anal canal, there was a small amount of inflammation, which was nonspecific and may have been due to the colonic prep. This was biopsied with forceps with visualization of good hemostasis. The endoscope was then advanced through the valves of [place] of the rectum with no polyps or any neoplasms identified. Through the sigmoid colon, there was a mild diverticulosis identified. The endoscope was then advanced to the remainder of the descending, transverse and ascending colon to the cecum. These segments were normal. There were no polyps or any neoplasms identified throughout the colon or rectum. The endoscope was then slowly withdrawn with taking a second look and suctioning of residual air with no additional findings. The patient tolerated the procedure well. We will recommend continued medical management with a high-fiber diet with at least 25 grams of fiber daily as well as significant amounts of water to promote soft stools on a daily basis. Due to her first-degree family history of colon cancer, we will recommend a followup colonoscopy in approximately five years. Job ID: [id number] DocumentID: [id number] Dictated Date: 05/18/2020 11:22:02 Enrollment Advisor Date: 05/18/2020 12:21:24 Dictated By: TOLU TEJEDA MD
== END 2020-05-18 12:15 | disposition home or self-care (01) ==
LOC: ENDO 08:47
PROVIDERS: ATTEND Surgery
DX: Z12.11 Encounter for screening for malignant neoplasm of colon (principal); K52.9 Noninfective gastroenteritis and colitis, unspecified; K64.1 Second degree hemorrhoids; K57.30 Diverticulosis of large intestine without perforation or abscess without bleeding; M06.9 Rheumatoid arthritis, unspecified; Z79.899 Other long term (current) drug therapy; Z88.8 Allergy status to other drugs, medicaments and biological substances; Z86.010 Personal history of colon polyps; Z90.710 Acquired absence of both cervix and uterus; Z80.0 Family history of malignant neoplasm of digestive organs; Z80.1 Family history of malignant neoplasm of trachea, bronchus and lung; Z80.3 Family history of malignant neoplasm of breast

== ENCOUNTER → 2020-06-20 | Outpatient (CLI) | payer BC ==
[~2020-06-20] MED LIST changes: +CATHETER FLUSH 10 ML SYR IV PRN; +CYCL10TA9 PO; +FLUT1BLS IH; +FOLI0.4T2 PO; +HOLD METFORMIN - RECEIVED CONTRAST 20 ML VIAL IV SCH; +HYDR200T46 PO; +IOHEXOL 350 MG/ML 100 ML (OMNIPAQUE 350) VIAL IV ONE; +METH1VIA2 IJ; +NS 100 ML (IVPB) BAG IV ONE
[2020-06-20 10:40] LABS: CREATININE SERUM 1.02 MG/DL (0.60-1.30)
--- NOTE | 2020-06-20 15:05 | Diagnostic Imaging Report ---
EXAMINATION: CT Chest with intravenous contrast. TECHNIQUE: Multiple contiguous axial images were obtained through the chest after the uneventful administration of intravenous contrast. All CT scans use one or more of the following dose optimizing techniques: automated exposure control, MA and/or KvP adjustment based on a patient size and exam type, or iterative reconstruction. HISTORY: Lung nodule. COMPARISON: 10/05/2019. FINDINGS: There is no edema or pneumonia. No pleural effusion. No pneumothorax. There is a stable 4 mm right lower lobe pulmonary nodule. A few other tiny 2-3 mm nodules are also stable. There is no axillary or supraclavicular lymphadenopathy. There is no mediastinal lymphadenopathy. Heart size is normal. There are no coronary artery calcifications. No pericardial effusion. Aorta is normal in caliber. Limited views of the upper abdomen are unremarkable. There are no suspicious osseous lesions. IMPRESSION: 1. Stable pulmonary nodule in the right lower lobe. This can be considered benign with no follow-up needed. Dictated by: Dictated on workstation # [id number]
== END ==
LOC: RAD 11:15
PROVIDERS: ATTEND Nurse Practitioner Family
DX: R91.1 Solitary pulmonary nodule (principal)
CPT/HCPCS: 36415; 71260; 82565; 84520

== ENCOUNTER → 2020-09-15 | Outpatient (CLI) | payer BC, MEDICARE ==
[~2020-09-15] MED LIST changes: -CATHETER FLUSH 10 ML SYR IV PRN; -FOLI0.4T2 PO; +FOLI0.4T6 PO; -FOLI1TAB24 PO; +FOLI1TAB33 PO; -HOLD METFORMIN - RECEIVED CONTRAST 20 ML VIAL IV SCH; -IOHEXOL 350 MG/ML 100 ML (OMNIPAQUE 350) VIAL IV ONE; -NS 100 ML (IVPB) BAG IV ONE; +RT-ALBUTEROL SULF 2.5 MG/3 ML PRE-MIX VIAL INH ONE
== END ==
LOC: RT 15:13
PROVIDERS: ATTEND Internal Medicine Critical Care Medicine
DX: J45.909 Unspecified asthma, uncomplicated (principal)
CPT/HCPCS: 94060; 94726; 94729

== ENCOUNTER → 2021-03-16 | Outpatient (CLI) | payer MEDICARE ==
[~2021-03-16] MED LIST changes: -RT-ALBUTEROL SULF 2.5 MG/3 ML PRE-MIX VIAL INH ONE
--- NOTE | 2021-03-16 13:25 | Diagnostic Imaging Report ---
Indication: Routine screening. Comparison is made with prior mammogram 02/25/2020 and 02/23/2019. 2-D and 3-D bilateral screening mammography was performed with CAD. Both breasts are heterogeneously dense, limiting the sensitivity of mammography. The parenchymal pattern is stable. No mass or malignant-appearing microcalcifications are seen. Axillae are unremarkable. IMPRESSION: BI-RADS Category 1 No mammographic features suspicious for malignancy are identified. Dictated by: Dictated on workstation # [id number]
== END ==
LOC: RAD 10:36
PROVIDERS: ATTEND Surgery
DX: Z12.31 Encounter for screening mammogram for malignant neoplasm of breast (principal)
CPT/HCPCS: 77063; 77067

== ENCOUNTER 2021-12-25 05:32 | Outpatient (CLI) | payer MEDICARE ==
[~2021-12-25] VITALS: Ht 170.2 cm; Wt 63.5 kg
[~2021-12-25 05:32] MED LIST changes: +CYCL10TA25 PO; -CYCL10TA9 PO
[2021-12-26] MEDS ORDERED: BUDE10.2 IH (08:40)
[2021-12-26] MEDS ORDERED: GOLI50PE SQ (08:40)
[2021-12-26] MEDS ORDERED: FOLI1TAB33 PO (08:40)
[2021-12-27] MEDS ORDERED: OMEP40CA6 PO (10:51)
== END 2021-12-25 13:57 | disposition home or self-care (01) ==
LOC: PREOP 05:32
PROVIDERS: ATTEND Surgery
DX: Z01.818 Encounter for other preprocedural examination (principal)

== ENCOUNTER 2021-12-27 09:33 | Day surgery (SDC) | payer MEDICARE ==
[~2021-12-27] VITALS: Ht 167.6 cm; Wt 63.5 kg
[~2021-12-27 09:33] MED LIST changes: +BUDE10.2 IH; +GOLI50PE SQ
[2021-12-27] MEDS ORDERED: LACTATED RINGERS 1,000 ML IV STA (09:53)
[2021-12-27] MEDS ORDERED: HURRICAINE EXT TUBE (BENZOCAINE) XX PRN (10:00)
[2021-12-27] MEDS ORDERED: LIDOCAINE JELLY 2% 6 ML SYRINGE MM PRN (10:00)
[2021-12-27 10:02] VITALS: BP 133/80
[2021-12-27] MEDS ORDERED: PROPOFOL INJECTION 50 ML IV ONE (10:42)
--- NOTE | 2021-12-27 10:50 | Progress Note-Pre Operative ---
Pre-Operative Progress Note H&P Reviewed The H&P was reviewed, patient examined and no changes noted. Date Seen by Provider: Dec 27, 2021 Time Seen by Provider: 10:00 Date H&P Reviewed: Dec 27, 2021 Time H&P Reviewed: 10:00 Pre-Operative Diagnosis: TOLU RODRIGUEZ MD Dec 27, 2021 10:50
[2021-12-27] MEDS ORDERED: OMEP40CA6 PO (10:51)
--- NOTE | 2021-12-27 10:52 | Discharge Inst-Surgical ---
D/C Lap Instructions-KIDO New, Converted, or Re-Newed RX: RX on Chart Follow Up Activity as tolerated High Fiber Diet 25g or more per day Avoid Alcohol, Caffeine, Spicy [place] and Acid foods. Drink 64 fluid oz or more of fluids per day. Symptoms to Report: Fever over 101 degree F, Nausea/Vomiting If any problems/questions: Contact your physician or go to Emergency Room TOLU TEJEDA MD Dec 27, 2021 10:52
[2021-12-27] MEDS ORDERED: ONDANSETRON 4 MG/2 ML (SDV) Z0FRAN IVP PRN (11:00)
[2021-12-27] MEDS ORDERED: ONDANSETRON 4 MG (ZOFRAN) ORAL DISSOLVE TAB PO PRN (11:00)
[2021-12-27 11:15] VITALS: BP 128/62
[2021-12-27 11:20] VITALS: BP 120/58
[2021-12-27 11:35] VITALS: BP 116/63
--- NOTE | 2021-12-27 11:39 | Progress Note-Post Operative ---
Post-Operative Progess Note Surgeon (s)/Gold Leaf Roller (s) Surgeon TOLU TEJEDA MD [place] Roller: none Pre-Operative Diagnosis GERD Post-Operative Diagnosis reflux esophagitis(grade C), mild dist esoph stricture, small HH(1.5cm), moderate gastritis. Procedure & Operative Findings Date of Procedure 12/27/21 Procedure Performed/Findings EGD with bx and balloon dilatation. Anesthesia Type mac Estimated Blood Loss Estimated blood loss (mL): minimal Specimens/Packing Specimens Removed ge jxn, antrum TOLU TEJEDA MD Dec 27, 2021 11:39
[2021-12-27 11:45] VITALS: BP 116/63
--- NOTE | 2021-12-27 13:45 | Anesthesia-General Post-Op ---
MAC Patient Condition Mental Status/LOC: Same as Preop Cardiovascular: Satisfactory Nausea/Vomiting: Absent Respiratory: Satisfactory Pain: Controlled Complications: Absent Post Op Complications Complications None Follow Up Care/Instructions Patient Instructions None needed. Anesthesiology Discharge Order Discharge Order Patient is doing well, no complaints, stable vital signs, no apparent adverse anesthesia problems. No complications reported per nursing. ANNAMARIA CAMARA CRNA Dec 27, 2021 13:45
--- NOTE | 2021-12-27 19:51 | OPERATIVE REPORT ---
DATE OF SERVICE: 12/27/2021 ATTENDING PRIMARY CARE PHYSICIAN: Anthony Warner DO. PREOPERATIVE DIAGNOSIS: Gastroesophageal reflux disease. POSTOPERATIVE DIAGNOSES: Reflux esophagitis grade C with a mild distal esophageal stricture, small hiatal hernia 1.5 cm in size, moderate gastritis. No distal obstructions. PROCEDURE: EGD with biopsy and balloon dilatation. SURGEON: Tolu Tejeda MD. ANESTHESIA: Monitored anesthesia care. ESTIMATED BLOOD LOSS: Minimal. FINDINGS: Reflux esophagitis grade C with a mild distal esophageal stricture, small hiatal hernia 1.5 cm in size, moderate gastritis. No distal obstructions. DISPOSITION: The patient tolerated the procedure well. INDICATIONS: The patient is a 66-year-old female who has had increased episodes of what she believes to be heartburn with epigastric burning sensation as well as crampy pain usually more at night. She states that this has been occurring for the past 6 months. She does not report any sarah episodes of nausea or vomiting as well as no hematemesis, no coffee ground emesis. She has taken knto-tcm-ronbbyq Zantac; however, this has not helped. She also does have a history of rheumatoid arthritis and does take methotrexate. DESCRIPTION OF PROCEDURE: The patient was brought to the endoscopy suite, laid in the left lateral decubitus position. After adequate IV pain and sedative medications and monitored anesthesia care, the mouthpiece was applied. The endoscope was placed in the mouth, visualizing the pharynx and hypopharyngeal region. Vocal cords, epiglottis and vallecula identified and appeared to be normal. The endoscope was gently intubated the esophageal opening and esophagus insufflated. The endoscope was then advanced through the first, second and third portion of esophagus at the level of the GE junction, a reflux esophagitis, Bradley grade C identified with a mild distal esophageal stricture also identified. A biopsy was taken with forceps with visualization of good hemostasis. The endoscope was then advanced into the stomach and endoscope retroflexed, visualizing a small hiatal hernia approximately 1.5 cm in size. There was a moderate gastritis. No formal ulcerations, polyps, or any neoplasms. A biopsy was taken of the antrum to rule out H. pylori with visualization of good hemostasis. The endoscope was advanced into the duodenum, which appeared normal with no distal obstructions. The balloon was then placed in the stomach and pulled back to the area of the stricture. We then proceeded in a stepwise fashion from 2, 4, then eventually 6 atmospheres of pressure with moderate resistance or 20 mm in luminal diameter and left this in place for approximately 60 seconds. The balloon was then desufflated and removed with visualization of good hemostasis as well as no mucosal tears. The endoscope was then slowly withdrawn while taking a second look and suctioning of residual air with no additional findings. The patient tolerated the procedure well. She does have significant signs and symptoms of reflux and we will recommend the necessary lifestyle and dietary accommodation including small and more frequent meals, avoidance of eating at night as well as head elevation while lying supine. She also needs to avoid caffeinated beverages, spicy, greasy and acidic foods. We will also start her on omeprazole 40 mg daily as well. If she does develop recurrent episodes of reflux or dysphagia, we will have her follow up. Job ID: [id number] DocumentID: [id number] Dictated Date: 12/27/2021 11:20:37 Banana Grader Date: 12/27/2021 19:51:13 Dictated By: TOLU TEJEDA MD MTDD
== END 2021-12-27 11:45 | disposition home or self-care (01) ==
LOC: ENDO 09:33
PROVIDERS: ATTEND Surgery
DX: K21.00 Gastro-esophageal reflux disease with esophagitis, without bleeding (principal); K22.2 Esophageal obstruction; K44.9 Diaphragmatic hernia without obstruction or gangrene; K29.60 Other gastritis without bleeding; M06.9 Rheumatoid arthritis, unspecified; Z79.899 Other long term (current) drug therapy; Z87.891 Personal history of nicotine dependence; Z88.8 Allergy status to other drugs, medicaments and biological substances

== ENCOUNTER → 2022-04-13 | Outpatient (CLI) | payer MEDICARE ==
[~2022-04-13] MED LIST changes: +OMEP40CA6 PO
== END ==
LOC: CARD 08:38
PROVIDERS: ATTEND Internal Medicine Cardiovascular Disease
DX: I08.3 Combined rheumatic disorders of mitral, aortic and tricuspid valves (principal)
CPT/HCPCS: 93306

== ENCOUNTER → 2022-04-17 | Outpatient (CLI) | payer MEDICARE ==
[~2022-04-17] MED LIST changes: +CATHETER FLUSH 10 ML SYR IVP PRN; +REGADENOSON 0.4 MG/5 ML SYR (LEXISCAN) IV ONE
[2022-04-17 09:12] VITALS: BP 134/79
--- NOTE | 2022-04-20 13:42 | STRESS TEST ---
DATE OF SERVICE: 04/17/2022 RESTING AND POST REGADENOSON TECHNETIUM-99M TETROFOSMIN SPECT CT IMAGING ORDERING PHYSICIAN: Dr. Aguayo. PRIMARY PHYSICIAN: Dr. Fajardo. CLINICAL DIAGNOSES: Shortness of breath. Baseline images were carried out after injection of 10.24 mCi of technetium-99m Tetrofosmin. This was followed by 0.4 mg regadenoson and 31.8 mCi of technetium-99m Tetrofosmin for stress imaging. The electrocardiogram showed sinus rhythm at baseline. It did not change significantly with regadenoson infusion. There is baseline ST segment abnormality, mild to moderate. This did not change significantly with regadenoson infusion. She noted some shortness of breath and a headache and an upset stomach after the regadenoson infusion, which resolved in a few minutes. Review of images at rest and following stress does not indicate any significant perfusion defects consistent with myocardial ischemia or infarction. Gated images show normal global left ventricular systolic function with normal regional wall motion. Left ventricular ejection fraction is calculated to be 68%. CONCLUSIONS: 1. No evidence of any significant myocardial ischemia or infarction on this study. 2. Normal regional wall motion. 3. Normal global left ventricular systolic function with a calculated ejection fraction of 68%. Job ID: [id number] DocumentID: [id number] Dictated Date: 04/20/2022 13:15:55 Electronic Imaging System Operator Date: 04/20/2022 13:41:15 Dictated By: REYNOLD AGUAYO MD, MA, FACP, FACC,
== END ==
LOC: CARD 07:45
PROVIDERS: ATTEND Internal Medicine Cardiovascular Disease
DX: R06.09 Other forms of dyspnea (principal)
CPT/HCPCS: 78452; 93017; A9502

== ENCOUNTER → 2022-04-23 | Outpatient (CLI) | payer MEDICARE ==
[~2022-04-23] MED LIST changes: -CATHETER FLUSH 10 ML SYR IVP PRN; -REGADENOSON 0.4 MG/5 ML SYR (LEXISCAN) IV ONE
--- NOTE | 2022-04-23 12:16 | Diagnostic Imaging Report ---
Indication: Routine screening. Comparison is made with prior mammogram 03/16/2021 and 02/25/2020. 2-D and 3-D bilateral screening mammography was performed with CAD. CAD is utilized. The current study was also evaluated with a Computer Aided Detection (CAD) system. Both breasts are heterogeneously dense, limiting the sensitivity of mammography. Intraparenchymal lymph node upper outer right breast is stable. No spiculated mass or malignant-appearing microcalcifications are seen. There are occasional benign calcifications noted. Axillae are unremarkable. IMPRESSION: BI-RADS Category 2 No mammographic features suspicious for malignancy are identified. ACR BI-RADS Category 2: Benign findings. Result letter will be mailed to the patient. Note: At least 10% of breast cancer is not imaged by mammography. Dictated by: Dictated on workstation # [id number]
== END ==
LOC: RAD 09:30
PROVIDERS: ATTEND Surgery
DX: Z12.31 Encounter for screening mammogram for malignant neoplasm of breast (principal)
CPT/HCPCS: 77063; 77067

== ENCOUNTER → 2023-04-10 | Outpatient (CLI) | payer MEDICARE ==
[~2023-04-10] MED LIST changes: -GABA-490 PO; +GABA-491 PO; -HYDR200T46 PO; +HYDR200T71 PO
--- NOTE | 2023-04-10 09:56 | Diagnostic Imaging Report ---
PROCEDURE: MRI lumbar spine without contrast. TECHNIQUE: Multiplanar, multisequence MRI of the lumbar spine was performed without contrast. INDICATION: Chronic low back pain. COMPARISON: 03/25/2019. FINDINGS: 5 lumbar type vertebral bodies are visualized with the last well-formed disc space designated L5-S1. No acute fracture or dislocation is seen in the lumbar spine. Alignment is anatomic. Vertebral body heights and disc spaces are well-maintained. The bone marrow signal is normal. The conus terminates at the L1 level. No masses are seen associated with the conus or nerve roots of the cauda equina. No epidural collections are identified. Multilevel degenerative changes are seen in the lumbar spine with facet hypertrophy and buckling of the ligamentum flavum. This results in no significant spinal canal stenosis in the lumbar spine and mild foraminal narrowing at the L4-L5 and L5-S1 levels. Paravertebral soft tissues are unremarkable. Simple appearing cortical cyst is seen in the left kidney. IMPRESSION: 1. No acute fracture or dislocation in the lumbar spine. 2. Stable mild degenerative changes in the lumbar spine, greatest at L4-L5 and L5-S1. No high-grade spinal canal or foraminal stenosis. Dictated by: Dictated on workstation # [id number]
== END ==
LOC: RAD 07:52
PROVIDERS: ATTEND Internal Medicine
DX: M47.816 Spondylosis without myelopathy or radiculopathy, lumbar region (principal); M47.817 Spondylosis without myelopathy or radiculopathy, lumbosacral region; M06.00 Rheumatoid arthritis without rheumatoid factor, unspecified site; Z51.81 Encounter for therapeutic drug level monitoring; Z79.899 Other long term (current) drug therapy; R53.83 Other fatigue; M70.61 Trochanteric bursitis, right hip; M70.62 Trochanteric bursitis, left hip
CPT/HCPCS: 72148